=== PATIENT | female | born 1985 | race Caucasian/White ===

== ENCOUNTER 2017-07-31 17:47 | Emergency (ER) | payer MEDICAID ==
--- NOTE | 2017-07-31 18:24 | EDM.PDOC ---
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 She recently moved here from [place] over the past few days, driving. Started to have lower pelvic cramping two days ago while driving here from [place]. Cramping is located in suprapubic area, is constant but waxes and wanes, moderate severity, maybe provoked by driving on bumpy roads. Today she noticed some minimal spotting when she wiped. No heavy vaginal bleeding or passing clots. Otherwise feels well. No fever/recent illness. No nausea/ vomiting. No dysuria. No cough/CP/SOB. She does have bilateral lower extremity swelling that started after the long drive. (Julito Nick) - Related Data Allergies Allergy/AdvReac Type Severity Reaction Status Date / Time Sulfa (Sulfonamide Allergy Rash Verified 07/31/17 18:03 Antibiotics) Home Meds: Home Meds . 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: - Past Surgical History GI Surgical History: Reports: Cholecystectomy <Julito Nick - Last Filed: 07/31/17 18:41> Social & Family History - Tobacco Use Smoking Status *Q: Never Smoker - Caffeine Use Caffeine Use: Reports: None - Recreational Drug Use Recreational Drug Use: No <Julito Nick - Last Filed: 07/31/17 18:41> ED ROS GENERAL - Review of Systems Review Of Systems: See Below Constitutional: Denies: Fever HEENT: Reports: No Symptoms Respiratory: Denies: Shortness of Breath, Cough Cardiovascular: Denies: Chest Pain Endocrine: Reports: No Symptoms GI/Abdominal: Reports: Abdominal Pain : Denies: Dysuria Neurological: Reports: No Symptoms <Julito Nick - Last Filed: 07/31/17 18:41> ED EXAM - Physical Exam Exam: See Below Exam Limited By: No Limitations General Appearance: Alert, WD/WN, No Apparent Distress Eye Exam: Bilateral Eye: Normal Inspection Ears: Normal External Exam Nose: Normal Inspection Throat/Mouth: Normal Inspection, Normal Voice, No Airway Compromise Head: Atraumatic, Normocephalic Neck: Normal Inspection, Supple, Non-Tender, Full Range of Motion Respiratory/Chest: No Respiratory Distress, Lungs Clear, Normal Breath Sounds Cardiovascular: Normal Peripheral Pulses, Regular Rate, Rhythm, No Murmur GI/Abdominal Exam: Soft, Other (+suprapubic TTP, no rebound/guarding, no McBurney's pont TTP) (Female) Exam: Normal External Exam, Normal Speculum Exam, Other (Cervix closed. ). No: Cervical Discharge, Products of Conception, Tissue Present in Cervix/Vagina, Vaginal Bleeding Back Exam: Normal Inspection Extremities: Normal Inspection Neurological: Alert, Oriented, Normal Cognition, No Motor/Sensory Deficits Psychiatric: Normal Affect, Normal Mood Skin Exam: Warm, Dry, Intact, Normal Color, No Rash <Julito Nick - Last Filed: 07/31/17 18:41> Course <Julito Nick - Last Filed: 07/31/17 18:41> <Alonso Valerio - Last Filed: 07/31/17 22:09> - Vital Signs Last Recorded V/S: Last Vital Signs Temp 36.7 C 07/31/17 17:54 Pulse 82 07/31/17 17:54 Resp 16 07/31/17 17:54 BP 111/96 H 07/31/17 17:54 Pulse Ox 100 07/31/17 17:54 - Orders/Labs/Meds Orders: Active Orders 24 hr Category Date Time Status Pelvic Exam, Set Up [RC] ASDIRECTED Care 07/31/17 18:08 Active PATIENT RETYPE [BBK] Stat Lab 07/31/17 18:20 Results TYPE AND SCREEN [BBK] Stat Lab 07/31/17 18:20 Results Labs: Laboratory Tests 03/14/18 03/14/18 03/14/18 Range/Units 18:20 18:20 18:20 WBC 8.64 (3.98-10.04) K/mm3 RBC 4.43 (3.98-5.22) M/mm3 Hgb 12.9 (11.2-15.7) gm/L Hct 38.1 (34.1-44.9) % MCV 86.0 (79.4-94.8) fl MCH 29.1 (25.6-32.2) pg MCHC 33.9 (32.2-35.5) g/dl RDW Std Deviation 41.0 (36.4-46.3) fL Plt Count 395 H (182-369) K/mm3 MPV 9.3 L (9.4-12.3) fl Neut % (Auto) 66.8 (34.0-71.1) % Lymph % (Auto) 22.2 (19.3-51.7) % [place] % (Auto) 8.2 (4.7-12.5) % Eos % (Auto) 2.4 (0.7-5.8) Baso % (Auto) 0.2 (0.1-1.2) % Neut # (Auto) 5.76 (1.56-6.13) K/mm3 Lymph # (Auto) 1.92 (1.18-3.74) K/mm3 [place] # (Auto) 0.71 H (0.24-0.36) K/mm3 Eos # (Auto) 0.21 (0.04-0.36) K/mm3 Baso # (Auto) 0.02 (0.01-0.08) K/mm3 HCG, Quant 11144.0 mIU/mL Urine Color (Yellow) Urine Appearance (Clear) Urine pH (5.0-8.0) Ur Specific [place] (1.005-1.030) Urine Protein (Negative) Urine Glucose (UA) (Negative) Urine Ketones (Negative) Urine Occult Blood (Negative) Urine Nitrite (Negative) Urine Bilirubin (Negative) Urine Urobilinogen (0.2-1.0) Ur Leukocyte Esterase (Negative) Urine RBC (0-5) /hpf Urine WBC (0-5) /hpf Ur Epithelial Cells (0-5) /hpf Urine Bacteria (FEW) /hpf Urine Mucus (FEW) /hpf C trachomatis DNA (PCR) N gonorrhoeae DNA (PCR) Blood Type A POSITIVE Gel Antibody Screen Negative 07/31/17 07/31/17 Range/Units 18:38 20:52 WBC (3.98-10.04) K/mm3 RBC (3.98-5.22) M/mm3 Hgb (11.2-15.7) gm/L Hct (34.1-44.9) % MCV (79.4-94.8) fl MCH (25.6-32.2) pg MCHC (32.2-35.5) g/dl RDW Std Deviation (36.4-46.3) fL Plt Count (182-369) K/mm3 MPV (9.4-12.3) fl Neut % (Auto) (34.0-71.1) % Lymph % (Auto) (19.3-51.7) % [place] % (Auto) (4.7-12.5) % Eos % (Auto) (0.7-5.8) Baso % (Auto) (0.1-1.2) % Neut # (Auto) (1.56-6.13) K/mm3 Lymph # (Auto) (1.18-3.74) K/mm3 [place] # (Auto) (0.24-0.36) K/mm3 Eos # (Auto) (0.04-0.36) K/mm3 Baso # (Auto) (0.01-0.08) K/mm3 HCG, Quant mIU/mL Urine Color Yellow (Yellow) Urine Appearance Clear (Clear) Urine pH 6.0 (5.0-8.0) Ur Specific [place] 1.025 (1.005-1.030) Urine Protein Negative (Negative) Urine Glucose (UA) Negative (Negative) Urine Ketones 3+ H (Negative) Urine Occult Blood Negative (Negative) Urine Nitrite Negative (Negative) Urine Bilirubin Negative (Negative) Urine Urobilinogen 0.2 (0.2-1.0) Ur Leukocyte Esterase Negative (Negative) Urine RBC 0-5 (0-5) /hpf Urine WBC 0-5 (0-5) /hpf Ur Epithelial Cells 0-5 (0-5) /hpf Urine Bacteria Few (FEW) /hpf Urine Mucus Not seen (FEW) /hpf C trachomatis DNA (PCR) Not detected N gonorrhoeae DNA (PCR) Not detected Blood Type Gel Antibody Screen Meds: Medications Discontinued Medications Generic Name Dose Route Start Last Admin Trade Name Susan PRN Reason Stop Dose Admin Sodium Chloride 1,000 mls @ 1,000 mls/hr 07/31/17 18:58 07/31/17 19:30 Normal Saline IV 07/31/17 19:57 1,000 mls/hr ONETIME ONE Administration - Re-Assessments/Exams Free Text/Narrative Re-Assessment/Exam: 07/31/17 18:42 Well appearing, normal pelvic exam with no evidence of bleeding at this time. Labs/ultrasound pending. Anticipate sign out Dr. Valerio at 19:00 with plan to f/u labs and ultrasound and reevaluate pain. (Julito Nick) Free Text/Narrative Re-Assessment/Exam: 07/31/17 21:34 She is doing well at this time awaiting GC and Chlamydia ultrasound came back at 12 weeks 1 day she has a small sub-chorionic hemorrhage no additional abnormalities identified. Patient was brought in after 3 days of intermittent cramping she had a single episode of spotting earlier today which encouraged her to come in. Patient just moved out here from [place] and has not established with OB yet. She is a 2 para 1 she has a healthy 10-year-old daughter. Denies any unusual vaginal discharge. Urinalysis is not suggestive of infectious process. Repeat examination heart regular rhythm no murmur lungs clear no wheezes crackles or rhonchi respirations nonlabored abdomen active bowel sounds soft no apparent tenderness no rebound guarding or rigidity. She has some mild discomfort over the uterus but this is minimal. Urinalysis not suggestive of infectious process 1 dictated hCG is 56,000 consistent with dates seen on ultrasound of 12 weeks 1 day awaiting GC chlamydia type and screen. Case discussed Dr. Thomas assuming .GC chlamydia are negative and she is not Rh - patient will be discharged home to drink plenty of fluids and get plenty of rest and follow-up with Dr. Thomas later this week 07/31/17 22:05 She is not Rh- GC and Chlamydia are negative. She'll be discharged at this time (Alonso Valerio) Departure <Julito Nick - Last Filed: 07/31/17 18:41> - Departure Time of Disposition: 22:05 <Alonso Valerio Janneth - Last Filed: 07/31/17 22:09> - Departure Disposition: Home, Self-Care 01 Clinical Impression: Threatened miscarriage - Discharge Information Referrals: PCP,None [Primary Care Provider] - Forms: ED Department Discharge Additional Instructions: Return to the emergency room with any questions problems worsening symptoms. Follow-up with Dr. Thomas or the women's clinic later this week and 2 days. [phone] call in the morning to schedule Push lots of fluids. No heavy lifting no lifting over 20 pounds no repetitive lifting over 10-15 pounds. Continue vitamins
[2017-07-31] MEDS ORDERED: Sodium Chloride 0.9% 1,000 ML IV ONE (18:58)
--- NOTE | 2017-07-31 21:03 | US ---
First trimester obstetrical ultrasound: Multiple real-time images were obtained transabdominally. Comparison: No previous study. Dates: LMP: ? Current ultrasound: ELISA 02/25/18, gestational age 10 weeks 1 day Single intrauterine gestation is seen. Amniotic fluid volume is normal. Embryo is seen. Small subchorionic hemorrhage is noted. Right maternal ovary not visualized. Left internal ovary is normal. Measurements: [place]-rump length: 3.25 cm - 12 weeks 1 day Heart rate: 175 BPM Impression: 1. Single intrauterine gestation. Dates as noted above. 2. Small subchorionic hemorrhage. No additional abnormality is identified. Diagnostic code #2
[2017-07-31 21:28] LABS: C. TRACHOMATIS BY PCR NOT DETECTED; N. GONORRHOEAE BY PCR NOT DETECTED
== END 2017-07-31 22:13 | disposition home or self-care (01) ==
LOC: JD.ED 17:47
DX: O20.0 Threatened abortion (principal); Z88.2 Allergy status to sulfonamides
CPT/HCPCS: 36415; 76801; 81001; 84702; 85025; 86850; 86900; 86901; 87491; 87591; 96360; 99284; J7040; 99283

== ENCOUNTER 2017-08-04 14:27 | Emergency (ER) | payer MEDICAID ==
[2017-08-04] MEDS ORDERED: HYDROmorphone 0.5 MG/0.5 ML SYRINGE IVPUSH ONE ×2 (15:09→15:56)
[2017-08-04] MEDS ORDERED: Sodium Chloride 0.9% 1,000 ML IV ONE (15:09)
[2017-08-04] MEDS ORDERED: Sodium Chloride 0.9% 10 ML Syringe FLUSH PRN (15:09)
[2017-08-04] MEDS ORDERED: Ondansetron 4 MG/2 ML SDV IVPUSH ONE (15:17)
--- NOTE | 2017-08-04 15:23 | EDM.PDOC ---
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 She presents to the ED complaining of pelvic abdominal cramping with intermittent spotting with wiping. Their have been a few dark red small clots with wiping. She has not been wearing a pad. She states the discomfort is like contractions that radiates into her low back. She is concerned about miscarriage. She was seen in the ED for similar symptoms 4 days prior. She was diagnosed with a subchorionic hemorrhage small in nature. Single intrauterine gestation noted. The provider had discussed the case with Dr. Thomas. With instructions to discharge patient home and have her drink plenty of fluids get plenty of rest. She is scheduled to see Dr. Thomas this week. Additional instructions included no heavy lifting of greater than 20 pounds or repetitive lifting as well no sexual intercourse. Patient has also been mildly nauseated with onset of abdominal cramping. Appetite and fluid intake have been poor. No pain with urination. No dizziness with standing. No documented fever noted. She denies any additional complaints. history 2, para 1, no miscarriages or abortions. Blood type is A+. HCG quantitative from recent evaluation was 56,592. CBC was essentially normal. UA was negative for infection. Lower Pelvic Pain Score (Numeric/FACES): 8 - Related Data Allergies Allergy/AdvReac Type Severity Reaction Status Date / Time Sulfa (Sulfonamide Allergy Rash Verified 07/31/17 18:03 Antibiotics) Home Meds: Home Meds PNV95/Ferrous Fumarate/FA [ Tablet] 1 tab PO DAILY 08/04/17 [History] Past Medical History Respiratory History: Reports: Asthma RN ORTHOPAEDIC History: Reports: Other OB/BYN History: vaginal delivery; no complications with 1st - Past Surgical History GI Surgical History: Reports: Cholecystectomy Social & Family History - Tobacco Use Smoking Status *Q: Never Smoker - Caffeine Use Caffeine Use: Reports: None - Recreational Drug Use Recreational Drug Use: No ED ROS GENERAL - Review of Systems Review Of Systems: ROS reveals no pertinent complaints other than HPI. ED EXAM - Physical Exam Exam: See Below Exam Limited By: No Limitations General Appearance: Alert, WD/WN, No Apparent Distress Ears: Hearing Grossly Normal Nose: Normal Inspection Throat/Mouth: Normal Voice, No Airway Compromise Neck: Normal Inspection, Supple Respiratory/Chest: No Respiratory Distress, Lungs Clear, Normal Breath Sounds, No Accessory Muscle Use Cardiovascular: Normal Peripheral Pulses, Regular Rate, Rhythm, No Murmur GI/Abdominal Exam: Normal Bowel Sounds, Soft, No Organomegaly, No Distention, Other (pain to the pelvic region with palpation minimal. ) (Female) Exam: Normal External Exam, Adnexal Tenderness, Cervical Discharge, Vaginal Discharge. No: Normal Bimanual Exam (No bimanual pelvic exam would be obtained with history of subchorionic hemorrhage.), Cervical Dilatation, Cervical Lesions, Vaginal Bleeding, Vaginal Lesions Neurological: Alert, Oriented, CN II-XII Intact, Normal Cognition, No Motor/ Sensory Deficits Psychiatric: Normal Affect, Normal Mood Skin Exam: Warm, Dry, Intact, Normal Color, No Rash Course - Vital Signs Last Recorded V/S: Last Vital Signs Temp 97.8 F 08/04/17 19:00 Pulse 79 08/04/17 19:00 Resp 16 08/04/17 19:00 BP 94/68 08/04/17 19:00 Pulse Ox 100 08/04/17 19:00 - Orders/Labs/Meds Orders: Active Orders 24 hr Category Date Time Status Peripheral IV Care [RC] . DIRECTED Care 08/04/17 15:09 Active OB 1st Tri Sgl 1st Gest [US] Stat Exams 08/04/17 17:25 Taken Peripheral IV Insertion Adult [OM.PC] Routine Oth 08/04/17 15:09 Ordered Labs: Laboratory Tests 08/04/17 08/04/17 08/04/17 Range/Units 15:20 15:20 15:20 WBC 7.25 (3.98-10.04) K/mm3 RBC 4.86 (3.98-5.22) M/mm3 Hgb 14.0 (11.2-15.7) gm/L Hct 41.2 (34.1-44.9) % MCV 84.8 (79.4-94.8) fl MCH 28.8 (25.6-32.2) pg MCHC 34.0 (32.2-35.5) g/dl RDW Std Deviation 40.1 (36.4-46.3) fL Plt Count 358 (182-369) K/mm3 MPV 8.8 L (9.4-12.3) fl Neut % (Auto) 67.0 (34.0-71.1) % Lymph % (Auto) 22.2 (19.3-51.7) % [place] % (Auto) 8.1 (4.7-12.5) % Eos % (Auto) 2.3 (0.7-5.8) Baso % (Auto) 0.3 (0.1-1.2) % Neut # (Auto) 4.85 (1.56-6.13) K/mm3 Lymph # (Auto) 1.61 (1.18-3.74) K/mm3 [place] # (Auto) 0.59 H (0.24-0.36) K/mm3 Eos # (Auto) 0.17 (0.04-0.36) K/mm3 Baso # (Auto) 0.02 (0.01-0.08) K/mm3 Sodium 136 (136-145) mEq/L Potassium 3.2 L (3.5-5.1) mEq/L Chloride 102 (98-107) mEq/L Carbon Dioxide 25 (21-32) mEq/L Anion Gap 12.2 (5-15) BUN 6 L (7-18) mg/dL Creatinine 0.7 (0.55-1.02) mg/dL Est Cr Clr Drug Dosing 106.70 mL/min Estimated GFR (MDRD) > 60 (>60) mL/min BUN/Creatinine Ratio 8.6 L (14-18) Glucose 85 (74-106) mg/dL Calcium 9.1 (8.5-10.1) mg/dL Total Bilirubin 0.4 (0.2-1.0) mg/dL AST 12 L (15-37) U/L ALT 15 (14-59) U/L Alkaline Phosphatase 72 (46-116) U/L Total Protein 7.4 (6.4-8.2) g/dl Albumin 3.6 (3.4-5.0) g/dl Globulin 3.8 gm/dL Albumin/Globulin Ratio 1.0 (1-2) Progesterone 21.99 ng/mL HCG, Quant 65786.0 mIU/mL Meds: Medications Discontinued Medications Generic Name Dose Route Start Last Admin Trade Name Susan PRN Reason Stop Dose Admin Hydromorphone HCl 0.25 mg 08/04/17 15:09 08/04/17 15:26 Dilaudid IVPUSH 08/04/17 15:10 0.25 mg ONETIME ONE Administration Hydromorphone HCl 0.5 mg 08/04/17 15:56 08/04/17 16:03 Dilaudid IVPUSH 08/04/17 15:57 0.5 mg ONETIME ONE Administration Sodium Chloride 1,000 mls @ 999 mls/hr 08/04/17 15:09 08/04/17 15:23 Normal Saline IV 08/04/17 16:09 999 mls/hr ONETIME ONE Administration Ondansetron HCl 4 mg 08/04/17 15:17 08/04/17 19:07 Zofran IVPUSH 08/04/17 15:18 Not Given ONETIME ONE Sodium Chloride 10 ml 08/04/17 15:09 08/04/17 15:25 Saline Flush FLUSH 10 ml ASDIRECTED PRN Administration Keep Vein Open - Re-Assessments/Exams Free Text/Narrative Re-Assessment/Exam: IV established. Ordered Dilaudid 0.5 mg IVP, zofran 4mg IVP, and NS 999mls/hr. Initial labs and studies will include CBC, chem 14, HCG quantitative, and UA. Will perform speculum exam then discuss with Dr. Thomas if ultrasound required. Vaginal speculum exam performed with a positive [place] sign with only faint blood present along the cervical os. Thickened discharge from the cervix appears normal for . Patient had GC last ED vist which was negative. No foul odor present suggesting bacterial vaginosis. 08/04/17 16:30 HCG quantitative 52,834 decreased from previous E.D. visit. No UA obtained yet. Ordered ob ultrasound. 08/04/[address] Thomas. Suggested obtaining ultrasound here in the E.D. or in the clinic tomorrow. Have the patient call his office tomorrow morning at 730 to make an appt. Requested serum progesterone level be added to blood work. 163 Discussed labs with patient. Request ultrasound here in the E.D. This has been ordered. 08/04/17 18:33 No ultrasound results yet. No urine sample provided. Patient has no pain with urination. Progesterone 21.99. 1842 Ultrasound Report. Single live intrauterine gestation. 2. Estimated gestational age 10 weeks 6 day. Fetus is demonstrated appropriate interval growth. 3. Estimated date of delivery based on this ultrasound February 24, 2018. Patient has adequate pain control. No further spotting noted. Discharge instructions as documented. Departure - Departure Time of Disposition: 18:43 Disposition: Home, Self-Care 01 Condition: Good Clinical Impression: Vaginal spotting, Vaginal bleeding during - Discharge Information Instructions: Pain Medicine Instructions, [id number], Vaginal Bleeding During , First Trimester, [id number] Referrals: Glenn Thomas MD [Primary Care Provider] - Forms: ED Department Discharge Additional Instructions: Call and make an appt with Dr. Thomas tomorrow morning at 730 a.m. He will work you into his schedule. No sexual intercourse, heavy lifting, or strenuous activities. Utilize Tylenol for pain. Push the fluids. Ensure adequate rest. Return to ED for any new or worsening symptoms. - My Orders Last 24 Hours: My Active Orders 08/04/17 15:09 Peripheral IV Care [RC] . DIRECTED Peripheral IV Insertion Adult [OM.PC] Routine 08/04/17 17:25 OB 1st Tri Sgl 1st Gest [US] Stat - Assessment/Plan Last 24 Hours: My Active Orders 08/04/17 15:09 Peripheral IV Care [RC] . DIRECTED Peripheral IV Insertion Adult [OM.PC] Routine 08/04/17 17:25 OB 1st Tri Sgl 1st Gest [US] Stat
--- NOTE | 2017-08-05 11:05 | US ---
First trimester obstetrical ultrasound: Multiple real-time images were obtained transabdominally. Comparison: Previous obstetrical ultrasound of 07/31/17. Dates: LMP: ? Current ultrasound: ELISA 02/24/18, gestational age 10 weeks 6 days Earliest ultrasound (07/31/17): ELISA 02/25/18, gestational age 10 weeks 5 Single intrauterine gestation is seen. Embryo and yolk sac are seen. No subchorionic hemorrhage seen at this time. Maternal ovaries are not visualized. Measurements: [place]-rump length: 3.95 cm - 10 weeks 6 days Heart rate: 165 bpm Impression: 1. Single intrauterine gestation. Dates as noted above. 2. No complicating process is identified by ultrasound. Diagnostic code #1 Agree with preliminary report issued by [facility] ([facility] preliminary report dictated on 08/04/17, 7:36 PM Central Time)
== END 2017-08-04 19:00 | disposition home or self-care (01) ==
LOC: JD.ED 14:27
DX: O20.9 Hemorrhage in early pregnancy, unspecified (principal); O99.511 Diseases of the respiratory system complicating pregnancy, first trimester; J45.909 Unspecified asthma, uncomplicated; Z3A.10 10 weeks gestation of pregnancy; Z88.2 Allergy status to sulfonamides
CPT/HCPCS: 36415; 76801; 80053; 84144; 84702; 85025; 96361; 96374; 96376; 99284; J1170; J7040; J7050

== ENCOUNTER 2019-11-15 13:56 | Emergency (ER) | payer SELFPAY ==
[2019-11-15] MEDS ORDERED: Sodium Chloride 0.9% 10 ML Syringe FLUSH PRN (14:16)
[2019-11-15] MEDS ORDERED: Ketorolac 30 MG/ML SDV IVPUSH ONE (14:17)
[2019-11-15] MEDS ORDERED: Ondansetron 4 MG/2 ML SDV IVPUSH ONE (14:17)
--- NOTE | 2019-11-15 14:21 | EDM.PDOC ---
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 She states that she was cleaning her house when the symptoms began. Prior to the onset of pain she was feeling well. Since that time she has been experiencing intense stabbing pain, she did have some episodes of diarrhea, as well as nausea but has no vomiting. She denies any bleeding or abnormal vaginal discharge. Her last menstrual period was started on October 31 and lasted approximately 5 to 7 days which she states is normal for her. She denies any pain or burning with urination. She has no history of ovarian cyst that she is aware of. 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 Denies: Fever, Chills HEENT: Reports: No Symptoms Respiratory: Reports: No Symptoms Cardiovascular: Reports: No Symptoms Endocrine: Reports: No Symptoms GI/Abdominal: Reports: Diarrhea, Nausea. Denies: Vomiting : Reports: Pain (pelvic) Musculoskeletal: Reports: No Symptoms Skin: Reports: No Symptoms Neurological: Reports: No Symptoms Psychiatric: Reports: No Symptoms Hematologic/Lymphatic: Reports: No Symptoms Immunologic: Reports: No Symptoms ED EXAM, RENAL/ - Physical Exam Exam: See Below Exam Limited By: No Limitations General Appearance: Alert, WD/WN, Mild Distress Respiratory/Chest: No Respiratory Distress, Lungs Clear, Normal Breath Sounds, No Accessory Muscle Use, Chest Non-Tender Cardiovascular: Normal Peripheral Pulses, Regular Rate, Rhythm, No Edema, No Gallop, No JVD, No Murmur, No Rub GI/Abdominal: Normal Bowel Sounds, Soft, Non-Tender, No Organomegaly, No Distention, No Abnormal Bruit, No Mass, Other (Tenderness in the low midline suprapubic area.) Back Exam: Normal Inspection, Full Range of Motion, NT Neurological: Alert, Oriented, CN II-XII Intact, Normal Cognition, Normal Gait, Normal Reflexes, No Motor/Sensory Deficits Psychiatric: Normal Affect, Normal Mood Skin Exam: Warm, Dry, Intact, Normal Color, No Rash Course - Vital Signs Last Recorded V/S: Last Vital Signs Temp 98.2 F 11/15/19 14:04 Pulse 93 11/15/19 14:04 Resp 16 11/15/19 14:04 BP 108/82 11/15/19 14:04 Pulse Ox 100 11/15/19 14:04 - Orders/Labs/Meds Orders: Active Orders 24 hr Category Date Time Status Peripheral IV Care [RC] . DIRECTED Care 11/15/19 14:17 Active Transvaginal Non OB [US] Stat Exams 11/15/19 14:16 Taken Peripheral IV Insertion Adult [OM.PC] Stat Oth 11/15/19 14:16 Ordered Labs: Laboratory Tests 11/15/19 11/15/19 11/15/19 Range/Units 14:45 14:45 15:11 WBC 9.98 (3.98-10.04) K/mm3 RBC 4.83 (3.98-5.22) M/mm3 Hgb 14.2 (11.2-15.7) gm/dl Hct 43.2 (34.1-44.9) % MCV 89.4 (79.4-94.8) fl MCH 29.4 (25.6-32.2) pg MCHC 32.9 (32.2-35.5) g/dl RDW Std Deviation 45.2 (36.4-46.3) fL Plt Count 479 H D (182-369) K/mm3 MPV 9.0 L (9.4-12.3) fl Neut % (Auto) 58.6 (34.0-71.1) % Lymph % (Auto) 29.0 (19.3-51.7) % [place] % (Auto) 9.9 (4.7-12.5) % Eos % (Auto) 2.1 (0.7-5.8) Baso % (Auto) 0.3 (0.1-1.2) % Neut # (Auto) 5.85 (1.56-6.13) K/mm3 Lymph # (Auto) 2.89 (1.18-3.74) K/mm3 [place] # (Auto) 0.99 H (0.24-0.36) K/mm3 Eos # (Auto) 0.21 (0.04-0.36) K/mm3 Baso # (Auto) 0.03 (0.01-0.08) K/mm3 Sodium 140 (136-145) mEq/L Potassium 3.7 (3.5-5.1) mEq/L Chloride 103 (98-107) mEq/L Carbon Dioxide 27 (21-32) mEq/L Anion Gap 13.7 (5-15) BUN 12 (7-18) mg/dL Creatinine 1.1 H (0.55-1.02) mg/dL Est Cr Clr Drug Dosing 66.68 mL/min Estimated GFR (MDRD) 58 (>60) mL/min BUN/Creatinine Ratio 10.9 L (14-18) Glucose 82 (74-106) mg/dL Calcium 8.6 (8.5-10.1) mg/dL Total Bilirubin 0.3 (0.2-1.0) mg/dL AST 16 (15-37) U/L ALT 21 (14-59) U/L Alkaline Phosphatase 85 (46-116) U/L C-Reactive Protein <0.2 (<1.0) mg/dL Total Protein 7.3 (6.4-8.2) g/dl Albumin 3.7 (3.4-5.0) g/dl Globulin 3.6 gm/dL Albumin/Globulin Ratio 1.0 (1-2) Urine Color Yellow (Yellow) Urine Appearance Clear (Clear) Urine pH 6.0 (5.0-8.0) Ur Specific [place] > or = 1.030 (1.005-1.030) Urine Protein Negative (Negative) Urine Glucose (UA) Negative (Negative) Urine Ketones 1+ H (Negative) Urine Occult Blood Negative (Negative) Urine Nitrite Negative (Negative) Urine Bilirubin Negative (Negative) Urine Urobilinogen 0.2 (0.2-1.0) Ur Leukocyte Esterase Negative (Negative) Urine RBC 0-5 (0-5) /hpf Urine WBC 0-5 (0-5) /hpf Ur Squamous Epith Cells 0-5 (0-5) /hpf Urine Bacteria Few (FEW) /hpf Urine Mucus Few (FEW) /hpf Urine HCG, Qual (NEGATIVE) 11/15/19 Range/Units 15:11 WBC (3.98-10.04) K/mm3 RBC (3.98-5.22) M/mm3 Hgb (11.2-15.7) gm/dl Hct (34.1-44.9) % MCV (79.4-94.8) fl MCH (25.6-32.2) pg MCHC (32.2-35.5) g/dl RDW Std Deviation (36.4-46.3) fL Plt Count (182-369) K/mm3 MPV (9.4-12.3) fl Neut % (Auto) (34.0-71.1) % Lymph % (Auto) (19.3-51.7) % [place] % (Auto) (4.7-12.5) % Eos % (Auto) (0.7-5.8) Baso % (Auto) (0.1-1.2) % Neut # (Auto) (1.56-6.13) K/mm3 Lymph # (Auto) (1.18-3.74) K/mm3 [place] # (Auto) (0.24-0.36) K/mm3 Eos # (Auto) (0.04-0.36) K/mm3 Baso # (Auto) (0.01-0.08) K/mm3 Sodium (136-145) mEq/L Potassium (3.5-5.1) mEq/L Chloride (98-107) mEq/L Carbon Dioxide (21-32) mEq/L Anion Gap (5-15) BUN (7-18) mg/dL Creatinine (0.55-1.02) mg/dL Est Cr Clr Drug Dosing mL/min Estimated GFR (MDRD) (>60) mL/min BUN/Creatinine Ratio (14-18) Glucose (74-106) mg/dL Calcium (8.5-10.1) mg/dL Total Bilirubin (0.2-1.0) mg/dL AST (15-37) U/L ALT (14-59) U/L Alkaline Phosphatase (46-116) U/L C-Reactive Protein (<1.0) mg/dL Total Protein (6.4-8.2) g/dl Albumin (3.4-5.0) g/dl Globulin gm/dL Albumin/Globulin Ratio (1-2) Urine Color (Yellow) Urine Appearance (Clear) Urine pH (5.0-8.0) Ur Specific [place] (1.005-1.030) Urine Protein (Negative) Urine Glucose (UA) (Negative) Urine Ketones (Negative) Urine Occult Blood (Negative) Urine Nitrite (Negative) Urine Bilirubin (Negative) Urine Urobilinogen (0.2-1.0) Ur Leukocyte Esterase (Negative) Urine RBC (0-5) /hpf Urine WBC (0-5) /hpf Ur Squamous Epith Cells (0-5) /hpf Urine Bacteria (FEW) /hpf Urine Mucus (FEW) /hpf Urine HCG, Qual Negative (NEGATIVE) Meds: Medications Discontinued Medications Generic Name Dose Route Start Last Admin Trade Name Freq PRN Reason Stop Dose Admin Hydromorphone HCl 0.5 mg 11/15/19 15:50 11/15/19 15:57 Dilaudid IVPUSH 11/15/19 15:51 0.5 mg ONETIME ONE Administration Sodium Chloride 1,000 mls @ 150 mls/hr 11/15/19 14:30 11/15/19 14:44 Normal Saline IV 150 mls/hr ASDIRECTED LOURDES Administration Ketorolac Tromethamine 30 mg 11/15/19 14:17 11/15/19 14:43 Toradol IVPUSH 11/15/19 14:18 30 mg ONETIME ONE Administration Ondansetron HCl 4 mg 11/15/19 14:17 11/15/19 14:44 Zofran IVPUSH 11/15/19 14:18 4 mg ONETIME ONE Administration Sodium Chloride 10 ml 11/15/19 14:16 11/15/19 14:44 Saline Flush FLUSH 10 ml ASDIRECTED PRN Administration Keep Vein Open - Re-Assessments/Exams Free Text/Narrative Re-Assessment/Exam: 11/15/19 16:22 Patient's hematology was grossly unremarkable. test is negative. Urinalysis was negative for any infection or blood. Transvaginal ultrasound showed a small cervical nabothian cyst and a small subendometrial cyst with no acute findings. Ultrasounds were reviewed by Dr. Hammond and he visualizes a hemorrhagic cyst within the right ovary which is likely the cause of the patient's pain. Differential would be mittelschmerz pain as well. Patient does verbalize relief of pain with the medications given. We will discharge her home with a prescription for [place] and instructions to rest and abstain from sex for at least 2 days or until the pain resolves. Return to the ER for worsening symptoms or follow-up with PLATE SHEAR OPERATOR as needed. Discharge instructions as documented. Departure - Departure Time of Disposition: 16:24 Disposition: Home, Self-Care 01 Condition: Good Clinical Impression: Ovarian cyst Qualifiers: Laterality: right Qualified Code(s): N83.201 - Unspecified ovarian cyst, right side - Discharge Information *PRESCRIPTION DRUG MONITORING PROGRAM REVIEWED*: Yes *COPY OF PRESCRIPTION DRUG MONITORING REPORT IN PATIENT BRIAN: No Instructions: Ovarian Cyst, [id number] Referrals: PCP,None [Primary Care Provider] - Forms: ED Department Discharge Additional Instructions: You were seen in the emergency department today for abrupt onset of sharp pelvic pain. Work-up included blood work, urinalysis, and a pelvic ultrasound. As we discussed, there appears to be a small hemorrhagic cyst on the right ovary which is likely the cause of your pain. While in the ER you received a liter of IV fluids, Zofran for nausea, and Toradol and Dilaudid for pain which did resolve your pain. Recommend that you use [id number] ibuprofen for your pain. You have been provided a prescription for [place]. For pain not relieved by the ibuprofen, you may take 1 [place] every [address] work for 12 hours after taking this medication as it can be sedating. If your symptoms should worsen, please not hesitate to return to the ER. Follow-up with your PLATE SHEAR OPERATOR as needed. Sepsis Event Note (ED) - Evaluation Sepsis Screening Result: No Definite Risk - Focused Exam Vital Signs: Vital Signs Temp Pulse Resp BP Pulse Ox 11/15/19 14:04 98.2 F 93 16 108/82 100 - My Orders Last 24 Hours: My Active Orders 11/15/19 14:16 Transvaginal Non OB [US] Stat Peripheral IV Insertion Adult [OM.PC] Stat 11/15/19 14:17 Peripheral IV Care [RC] . DIRECTED - Assessment/Plan Last 24 Hours: My Active Orders 11/15/19 14:16 Transvaginal Non OB [US] Stat Peripheral IV Insertion Adult [OM.PC] Stat 11/15/19 14:17 Peripheral IV Care [RC] . DIRECTED
[2019-11-15] MEDS ORDERED: Sodium Chloride 0.9% 1,000 ML IV SCH (14:30)
[2019-11-15] MEDS ORDERED: HYDROmorphone 0.5 MG/0.5 ML Syringe IVPUSH ONE (15:50)
--- NOTE | 2019-11-16 09:44 | US ---
Pelvic ultrasound: Multiple real-time images were obtained transvaginally. Comparison: No prior pelvic ultrasound. Uterus is anteverted. Small amount of fluid is seen within the endocervical canal. Nabothian cysts are present. Endometrial thickness is normal at 9 mm. Follicles are seen within both ovaries. Minimal fluid within the cul-de-sac is seen believed to be physiologic. Measurements: Uterus: Length 9.8 cm, AP height 4.5 cm,transverse width 6.3 cm Right ovary: 3.1 x 1.3 x 1.8 cm Left ovary: 3.5 x 1.8 x 1.9 cm Impression: 1. Findings believed to be incidental as described above. 2. Nothing acute is appreciated. Diagnostic code #2 This report was dictated in MDT I agree with preliminary report from [facility], finalized on 11/15/19, 4:27 PM Central Daylight Time
== END 2019-11-15 16:49 | disposition home or self-care (01) ==
LOC: JD.ED 13:56
DX: N83.201 Unspecified ovarian cyst, right side (principal); J45.909 Unspecified asthma, uncomplicated; Z88.2 Allergy status to sulfonamides
CPT/HCPCS: 36415; 76830; 80053; 81001; 81025; 85025; 86140; 96361; 96374; 96375; 99284; J1170; J1885; J2405; J7030

== ENCOUNTER 2020-03-30 21:20 | Emergency (ER) | payer SELFPAY ==
[2020-03-30] MEDS ORDERED: Sodium Chloride 0.9% 10 ML Syringe FLUSH PRN (21:30)
[2020-03-30] MEDS ORDERED: HYDROmorphone 0.5 MG/0.5 ML Syringe IVPUSH ONE ×2 (21:40→22:37)
[2020-03-30] MEDS ORDERED: Sodium Chloride 0.9% 1,000 ML IV STA (21:40)
--- NOTE | 2020-03-30 21:45 | EDM.PDOC ---
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 States the end of her last menstrual period was around 23 February with the first day of last menstrual period being aroung February 18 . She was due to start her period approximately 1 week ago. States she took a home x1 week ago and was found to be positive. She took another one today and that was also positive. About 4 hours prior to coming to the ER, she started having some vaginal bleeding that has since developed pelvic cramps and low back pain. States that she is soaking a tampon an hour. Denies any lightheadedness. She has had no previous miscarriages. 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 History: vaginal delivery; no complications with 1st , subchorionic bleed Musculoskeletal History: Reports: None Neurological History: Reports: None Psychiatric History: Reports: None Endocrine/Metabolic History: Reports: None Hematologic History: Reports: None Immunologic History: Reports: None Oncologic (Cancer) History: Reports: None Dermatologic History: Reports: None - Infectious Disease History Infectious Disease History: Reports: None - Past Surgical History Head Surgeries/Procedures: Reports: None HEENT Surgical History: Reports: None GI Surgical History: Reports: Cholecystectomy Social & Family History - Family History Family Medical History: No Pertinent Family History - Tobacco Use Tobacco Use Status *Q: Never Tobacco User - Caffeine Use Caffeine Use: Reports: Coffee - Recreational Drug Use Recreational Drug Use: Yes Drug Use in Last 12 Months: No Recreational Drug Type: Reports: Marijuana/Hashish Recreational Drug Use Frequency: Not Used In Over 1 Year ED ROS GENERAL - Review of Systems Review Of Systems: See Below Constitutional: Reports: No Symptoms HEENT: Reports: No Symptoms Respiratory: Reports: No Symptoms Cardiovascular: Reports: No Symptoms Endocrine: Reports: No Symptoms GI/Abdominal: Reports: No Symptoms : Reports: Pain, Other (Vaginal bleeding in ) Musculoskeletal: Reports: Back Pain (Low) Skin: Reports: No Symptoms Neurological: Reports: No Symptoms Psychiatric: Reports: No Symptoms Hematologic/Lymphatic: Reports: No Symptoms Immunologic: Reports: No Symptoms ED EXAM - Physical Exam Exam: See Below General Appearance: Alert, WD/WN, No Apparent Distress Respiratory/Chest: No Respiratory Distress, Lungs Clear, Normal Breath Sounds, No Accessory Muscle Use, Chest Non-Tender Cardiovascular: Normal Peripheral Pulses, Regular Rate, Rhythm, No Edema, No Gallop, No JVD, No Murmur, No Rub GI/Abdominal Exam: Normal Bowel Sounds, Soft, No Organomegaly, No Distention, No Abnormal Bruit, No Mass, Pelvis Stable, Tender (suprapubic) (Female) Exam: Normal External Exam, Cervical Discharge (bloody/mucousy), Tissue Present in Cervix/Vagina (small amount of tissue present in cervical os) Neurological: Alert, Oriented, CN II-XII Intact, Normal Cognition, Normal Gait, Normal Reflexes, No Motor/Sensory Deficits Psychiatric: Normal Affect, Normal Mood Skin Exam: Warm, Dry, Intact, Normal Color, No Rash Course - Vital Signs Last Recorded V/S: Last Vital Signs Temp 97.4 F 03/30/20 21:28 Pulse 83 03/30/20 21:28 Resp 16 03/30/20 21:28 BP 116/89 03/30/20 21:28 Pulse Ox 99 03/30/20 21:28 - Orders/Labs/Meds Orders: Active Orders 24 hr Category Date Time Status Peripheral IV Care [RC] . DIRECTED Care 03/30/20 21:32 Active OB Transvaginal [US] Stat Exams 03/30/20 21:31 Taken TYPE AND SCREEN [BBK] Stat Lab 03/30/20 21:45 Received Sodium Chloride 0.9% [Saline Flush] Med 03/30/20 21:30 Active 10 ml FLUSH ASDIRECTED PRN Peripheral IV Insertion Adult [OM.PC] Stat Oth 03/30/20 21:31 Ordered Medication Orders Sodium Chloride (Saline Flush) 10 ml FLUSH ASDIRECTED PRN PRN Reason: Keep Vein Open Last Admin: 03/30/20 21:46 Dose: 10 ml Documented by: PADDY Labs: Laboratory Tests 03/30/20 03/30/20 Range/Units 21:45 21:45 WBC 9.25 (3.98-10.04) K/mm3 RBC 4.52 (3.98-5.22) M/mm3 Hgb 12.8 (11.2-15.7) gm/dl Hct 40.7 (34.1-44.9) % MCV 90.0 (79.4-94.8) fl MCH 28.3 (25.6-32.2) pg MCHC 31.4 L (32.2-35.5) g/dl RDW Std Deviation 44.3 (36.4-46.3) fL Plt Count 377 H D (182-369) K/mm3 MPV 9.0 L (9.4-12.3) fl Neut % (Auto) 55.9 (34.0-71.1) % Lymph % (Auto) 32.4 (19.3-51.7) % [place] % (Auto) 8.8 (4.7-12.5) % Eos % (Auto) 2.5 (0.7-5.8) Baso % (Auto) 0.2 (0.1-1.2) % Neut # (Auto) 5.17 (1.56-6.13) K/mm3 Lymph # (Auto) 3.00 (1.18-3.74) K/mm3 [place] # (Auto) 0.81 H (0.24-0.36) K/mm3 Eos # (Auto) 0.23 (0.04-0.36) K/mm3 Baso # (Auto) 0.02 (0.01-0.08) K/mm3 HCG, Quant 25.0 mIU/mL Meds: Medications Generic Name Dose Route Start Last Admin Trade Name Freq PRN Reason Stop Dose Admin Sodium Chloride 10 ml 03/30/20 21:30 03/30/20 21:46 Saline Flush FLUSH 10 ml ASDIRECTED PRN Administration Keep Vein Open Discontinued Medications Generic Name Dose Route Start Last Admin Trade Name Susan PRN Reason Stop Dose Admin Hydromorphone HCl 0.5 mg 03/30/20 21:40 03/30/20 21:46 Dilaudid IVPUSH 03/30/20 21:41 0.5 mg ONETIME ONE Administration Hydromorphone HCl 0.5 mg 03/30/20 22:37 03/30/20 22:57 Dilaudid IVPUSH 03/30/20 22:38 0.5 mg ONETIME ONE Administration Sodium Chloride 1,000 mls @ 999 mls/hr 03/30/20 21:40 03/30/20 21:46 Normal Saline IV 03/30/20 22:40 999 mls/hr NOW STA Administration - Re-Assessments/Exams Free Text/Narrative Re-Assessment/Exam: Patient is a 34-year-old female G3, P2 presenting to the emergency department with complaints of vaginal bleeding and pelvic cramping. She is estimated to be approximately 5 to 6 weeks gestation based on her last menstrual period. States had a positive test 1 week ago and then another positive test today. She developed onset of bleeding and pelvic cramping about 4 hours prior to coming to ER. I have ordered CBC, quantitative hCG, ABO/Rh, transvaginal pelvic ultrasound, IV normal saline at 150 mils per hour and Dilaud id 0.5 mg IV. Review of her previous visits to this emergency department indicate that she is A+, however we will verify that today. 03/30/20 23:00 hCG level is minimally elevated at 25. Blood work was otherwise unremarkable. Pelvic exam shows a small amount of tissue noted within the cervix. Transvaginal ultrasound shows no intrauterine gestation, there is a complicated cyst on the right ovary, cannot exclude ectopic . Called and spoke with the DATA ANALYSIS INTERN on-call, Dr. Jefferson. He would like her to follow-up in the clinic on Saturday morning to trend the hCG levels. I will write a prescription for Percocet. Discussed return precautions with the patient including saturating a pad an hour for more than 2 hours or intolerable pain. I will provide her with a note off from work to be used as needed. Discharge instructions as documented. Departure - Departure Time of Disposition: 23:01 Disposition: Home, Self-Care 01 Condition: Good Clinical Impression: Threatened miscarriage - Discharge Information *PRESCRIPTION DRUG MONITORING PROGRAM REVIEWED*: Yes *COPY OF PRESCRIPTION DRUG MONITORING REPORT IN PATIENT BRIAN: No Prescriptions: Acetaminophen/oxyCODONE [Percocet 325-5 MG] 1 each PO Q4H PRN #20 tab PRN Reason: Pain Instructions: Threatened Miscarriage, [id number] Referrals: Adalberto Jefferson MD [Physician] - Forms: ED Department Discharge, ED Return to Work/School Form Additional Instructions: You were seen in the emergency department today for pelvic cramping and bleeding in early . Blood work was completed and showed that your hCG levels are minimally elevated, however not to the degree that we would expect them to be given your last menstrual period dates. Pelvic ultrasound was completed and unfortunately does not show an intrauterine gestation. At this point the possibilities are a miscarriage versus ectopic . A prescription for Percocet for pain has been provided. Take this medication as prescribed. Your case has been discussed with Dr. Jefferson, DATA ANALYSIS INTERN. Recommend that you call tomorrow to set up a follow-up appoint with him for Saturday. If your bleeding should increase to the point that you are saturating a pad an hour for more than 2 hours or the pain increases and is intolerable. You should return to the emergency department for reevaluation. Sepsis Event Note (ED) - Evaluation Sepsis Screening Result: No Definite Risk - Focused Exam Vital Signs: Vital Signs Temp Pulse Resp BP Pulse Ox 03/30/20 21:28 97.4 F 83 16 116/89 99 - My Orders Last 24 Hours: My Active Orders 03/30/20 21:30 Sodium Chloride 0.9% [Saline Flush] 10 ml FLUSH ASDIRECTED PRN 03/30/20 21:31 OB Transvaginal [US] Stat Peripheral IV Insertion Adult [OM.PC] Stat 03/30/20 21:32 Peripheral IV Care [RC] . DIRECTED 03/30/20 21:45 TYPE AND SCREEN [BBK] Stat - Assessment/Plan Last 24 Hours: My Active Orders 03/30/20 21:30 Sodium Chloride 0.9% [Saline Flush] 10 ml FLUSH ASDIRECTED PRN 03/30/20 21:31 OB Transvaginal [US] Stat Peripheral IV Insertion Adult [OM.PC] Stat 03/30/20 21:32 Peripheral IV Care [RC] . DIRECTED 03/30/20 21:45 TYPE AND SCREEN [BBK] Stat
[2020-03-30] MEDS ORDERED: Acetaminophen/oxyCODONE 325-5 MG Tab PO ONE (23:05)
--- NOTE | 2020-03-31 08:47 | US ---
Addendum created by Damaris Hoffman MD on 03/31/2020 12:00 AM Central Time ([place]): THIS REPORT CONTAINS FINDINGS THAT MAY BE CRITICAL TO PATIENT CARE. The findings were verbally communicated via telephone conference with SAMANTHA LUNA at 12:[address] [employer]INTENA[employer]W WORKER on 03/31/2020. The findings were acknowledged and understood. Initial Report created on 03/31/2020 12:00 AM Central Time ([place] & [place]): PROCEDURE INFORMATION: Exam: US , Transvaginal Exam date and time: 03/30/2020 10:04 PM Age: 34 years old Clinical indication: Lmp or gestational age (in weeks): Working kevin/lmp not provided; Antepartum complications; Bleeding and other: Cramping; Patient HX: 03/30/20 hcg 25 miu/ml TECHNIQUE: Imaging protocol: Real-time transvaginal obstetrical ultrasound of the maternal pelvis and a first trimester with image documentation. Transvaginal imaging was used for better evaluation of the fetus, adnexa, and/or cervix. COMPARISON: US Transvaginal Non OB 11/15/2019 3:41 PM FINDINGS: Gestation: No intrauterine is identified. MATERNAL: Uterus: Uterus measures 8.0 cm longitudinally. Endometrium is thickened and echogenic at 9.0 mm. Right adnexa: Right ovary measures 4.8 x 3.8 x 4.6 cm for a right ovarian volume of 42.8 mL. There is a complex cyst associated with the right ovary, measuring 4.2 x 3.3 x 4.2 cm there is surrounding hyperemia. Left adnexa: The left ovary measures 5.9 x 3.9 x 3.6 cm for a left ovarian volume of 43.0 mL. There is internal complex cyst measuring 4.0 x 3.2 x 3.0 cm with an internal fluid debris level. There is surrounding hyperemia. Intraperitoneal space: No free fluid. IMPRESSION: 1. No intrauterine is identified. 2. Complex cystic structures associated with each ovary. These may represent hemorrhagic cysts and/or corpus luteal cyst. An ectopic cannot be excluded. These findings are discussed with referring service immediately upon completion of the study. Thank you for allowing us to participate in the care of your patient. Dictated and Authenticated by: Damaris Hoffman MD 03/31/2020 12:00 AM Central Time ([place]) MTDD
== END 2020-03-30 23:22 | disposition home or self-care (01) ==
LOC: JD.ED 21:20
DX: O20.0 Threatened abortion (principal); Z88.2 Allergy status to sulfonamides; Z3A.01 Less than 8 weeks gestation of pregnancy
CPT/HCPCS: 36415; 76817; 84702; 85025; 86850; 86900; 86901; 96374; 96376; 99284; A9270; J1170; J7030

== ENCOUNTER 2021-01-10 11:51 | Emergency (ER) | payer MEDICAID ==
[2021-01-10] MEDS ORDERED: Ketorolac 30 MG/ML SDV IVPUSH ONE (12:41)
[2021-01-10] MEDS ORDERED: Sodium Chloride 0.9% 10 ML Syringe FLUSH PRN (12:41)
--- NOTE | 2021-01-10 13:44 | EDM.PDOC ---
ED HPI GENERAL MEDICAL PROBLEM - General Chief Complaint: HEADMASTER/MISTRESS Problem Stated Complaint: PELVIC PAIN Time Seen by Provider: 01/10/21 12:00 Source of Information: Reports: Patient History Limitations: Reports: No Limitations - History of Present Illness INITIAL COMMENTS - FREE TEXT/NARRATIVE: 35-year-old female presents the emergency department today with complaints of pelvic/cervical pain that started 3 hours prior to arrival. She states she was sitting at work taking a test when she developed severe suprapubic pain as well as she describes cervical pain. She states she does have a history of miscarriage once and ovarian cyst however she states that this pain is significantly worse than both those instances. She has not taken any Tylenol or ibuprofen for the discomfort. She denies any recent fever, chills, nausea, vomiting or diarrhea. She denies any urinary symptoms. She denies any cough, shortness of breath or any respiratory symptoms. She states she is otherwise healthy. She does not have a primary care provider. She does not believe she could be as she states her and her use condoms for control. She states that the first day of her last menstrual period was on 25 December 2020. She states her periods are regular and she has not missed any periods. Left Lower Vaginal Pain Score (Numeric/FACES): 8 - Related Data Allergies Allergy/AdvReac Type Severity Reaction Status Date / Time Sulfa (Sulfonamide Allergy Severe Rash Verified 01/10/21 11:58 Antibiotics) Home Meds: Home Meds Naproxen 500 mg PO Q12H #10 tablet. 01/10/21 [Rx] Past Medical History - Past Health History Medical/Surgical History: Denies Medical/Surgical History HEENT History: Reports: None Cardiovascular History: Reports: None Respiratory History: Reports: Asthma Gastrointestinal History: Reports: Cholelithiasis Genitourinary History: Reports: None HEADMASTER/MISTRESS History: Reports: Other HEADMASTER/MISTRESS History: vaginal delivery; no complications with 1st , subchorionic bleed Musculoskeletal History: Reports: None Neurological History: Reports: None Psychiatric History: Reports: None Endocrine/Metabolic History: Reports: None Hematologic History: Reports: None Immunologic History: Reports: None Oncologic (Cancer) History: Reports: None Dermatologic History: Reports: None - Infectious Disease History Infectious Disease History: Reports: Chicken Pox - Past Surgical History Head Surgeries/Procedures: Reports: None HEENT Surgical History: Reports: None GI Surgical History: Reports: Cholecystectomy Social & Family History - Family History Family Medical History: No Pertinent Family History - Tobacco Use Tobacco Use Status *Q: Never Tobacco User - Caffeine Use Caffeine Use: Reports: Coffee - Recreational Drug Use Recreational Drug Use: No ED ROS GENERAL - Review of Systems Review Of Systems: Comprehensive ROS is negative, except as noted in HPI. ED EXAM, RENAL/ - Physical Exam Exam: See Below Exam Limited By: No Limitations General Appearance: Alert, WD/WN, No Apparent Distress Ears: Normal External Exam, Hearing Grossly Normal Nose: Normal Inspection Throat/Mouth: Normal Inspection, Normal Lips, Normal Voice, No Airway Compromise Head: Atraumatic, Normocephalic Neck: Normal Inspection, Supple Respiratory/Chest: No Respiratory Distress, Lungs Clear, Normal Breath Sounds, No Accessory Muscle Use, Chest Non-Tender Cardiovascular: Normal Peripheral Pulses, Regular Rate, Rhythm, No Edema, No Murmur GI/Abdominal: Normal Bowel Sounds, Soft, No Distention, Tender (Right and left l ower quadrant as well as suprapubic area) (Female) Exam: Normal External Exam, Adnexal Tenderness, Cervical Discharge (Milky white), Vaginal Discharge (Milky white milky white) Rectal (Female) Exam: Deferred Back Exam: Normal Inspection Extremities: Normal Inspection Neurological: Alert, Oriented, Normal Cognition Psychiatric: Normal Affect, Normal Mood Skin Exam: Warm, Dry, Intact, Normal Color, No Rash Lymphatic: No Adenopathy Course - Vital Signs Text/Narrative:: As stated above, patient presents with suprapubic pain that started about 3 hours ago. Upon assessment patient is awake and alert and does not appear in any distress. She does note tenderness with palpation to the suprapubic area as well as the left and right lower quadrants. I have ordered labs to include a CBC, CMP, magnesium level and a CRP level. We will also obtain a urine test. And a urinalysis with micro and culture if indicated. Nursing staff will place a saline lock. We will also give the patient Toradol 30 mg IV for the discomfort. Last Recorded V/S: Last Vital Signs Temp 97.9 F 01/10/21 12:02 Pulse 76 01/10/21 12:02 Resp 18 01/10/21 12:02 BP 121/81 01/10/21 12:02 Pulse Ox 100 01/10/21 12:02 - Orders/Labs/Meds Orders: Active Orders 24 hr Category Date Time Status WET PREP [MYC] Stat Lab 01/10/21 15:52 Ordered Sodium Chloride 0.9% [Saline Flush] Med 01/10/21 12:41 Active 10 ml FLUSH ASDIRECTED PRN Saline Lock Insert [OM.PC] Stat Oth 01/10/21 12:41 Ordered Medication Orders Sodium Chloride (Sodium Chloride 0.9% 10 Ml Syringe) 10 ml FLUSH ASDIRECTED PRN PRN Reason: Keep Vein Open Last Admin: 01/10/21 13:04 Dose: 10 ml Documented by: VALERIE Labs: Laboratory Tests 01/10/21 01/10/21 01/10/21 Range/Units 12:52 12:52 12:52 WBC 8.36 (3.98-10.04) K/mm3 RBC 4.96 (3.98-5.22) M/mm3 Hgb 14.4 D (11.2-15.7) gm/dl Hct 43.9 (34.1-44.9) % MCV 88.5 (79.4-94.8) fl MCH 29.0 (25.6-32.2) pg MCHC 32.8 (32.2-35.5) g/dl RDW Std Deviation 43.9 (36.4-46.3) fL Plt Count 424 H (182-369) K/mm3 MPV 8.9 L (9.4-12.3) fl Neut % (Auto) 62.5 (34.0-71.1) % Lymph % (Auto) 25.4 (19.3-51.7) % [place] % (Auto) 8.7 (4.7-12.5) % Eos % (Auto) 2.9 (0.7-5.8) Baso % (Auto) 0.4 (0.1-1.2) % Neut # (Auto) 5.23 (1.56-6.13) K/mm3 Lymph # (Auto) 2.12 (1.18-3.74) K/mm3 [place] # (Auto) 0.73 H (0.24-0.36) K/mm3 Eos # (Auto) 0.24 (0.04-0.36) K/mm3 Baso # (Auto) 0.03 (0.01-0.08) K/mm3 Sodium (136-145) mEq/L Potassium (3.5-5.1) mEq/L Chloride (98-107) mEq/L Carbon Dioxide (21-32) mEq/L Anion Gap (5-15) BUN (7-18) mg/dL Creatinine (0.55-1.02) mg/dL Est Cr Clr Drug Dosing mL/min Estimated GFR (MDRD) (>60) mL/min BUN/Creatinine Ratio (14-18) Glucose (70-99) mg/dL Calcium (8.5-10.1) mg/dL Magnesium (1.8-2.4) mg/dL Total Bilirubin (0.2-1.0) mg/dL AST (15-37) U/L ALT (14-59) U/L Alkaline Phosphatase (46-116) U/L C-Reactive Protein (<1.0) mg/dL Total Protein (6.4-8.2) g/dl Albumin (3.4-5.0) g/dl Globulin gm/dL Albumin/Globulin Ratio (1-2) Urine Color Yellow (Yellow) Urine Appearance Clear (Clear) Urine pH 6.0 (5.0-8.0) Ur Specific Loving > or = 1.030 (1.005-1.030) Urine Protein Negative (Negative) Urine Glucose (UA) Negative (Negative) Urine Ketones Negative (Negative) Urine Occult Blood Negative (Negative) Urine Nitrite Negative (Negative) Urine Bilirubin Negative (Negative) Urine Urobilinogen 0.2 (0.2-1.0) Ur Leukocyte Esterase Negative (Negative) Urine HCG, Qual Negative (NEGATIVE) 01/10/21 Range/Units 12:52 WBC (3.98-10.04) K/mm3 RBC (3.98-5.22) M/mm3 Hgb (11.2-15.7) gm/dl Hct (34.1-44.9) % MCV (79.4-94.8) fl MCH (25.6-32.2) pg MCHC (32.2-35.5) g/dl RDW Std Deviation (36.4-46.3) fL Plt Count (182-369) K/mm3 MPV (9.4-12.3) fl Neut % (Auto) (34.0-71.1) % Lymph % (Auto) (19.3-51.7) % Prairie % (Auto) (4.7-12.5) % Eos % (Auto) (0.7-5.8) Baso % (Auto) (0.1-1.2) % Neut # (Auto) (1.56-6.13) K/mm3 Lymph # (Auto) (1.18-3.74) K/mm3 [place] # (Auto) (0.24-0.36) K/mm3 Eos # (Auto) (0.04-0.36) K/mm3 Baso # (Auto) (0.01-0.08) K/mm3 Sodium 140 (136-145) mEq/L Potassium 3.9 (3.5-5.1) mEq/L Chloride 104 (98-107) mEq/L Carbon Dioxide 28 (21-32) mEq/L Anion Gap 11.9 (5-15) BUN 8 (7-18) mg/dL Creatinine 0.8 (0.55-1.02) mg/dL Est Cr Clr Drug Dosing 90.00 mL/min Estimated GFR (MDRD) > 60 (>60) mL/min BUN/Creatinine Ratio 10.0 L (14-18) Glucose 87 (70-99) mg/dL Calcium 8.8 (8.5-10.1) mg/dL Magnesium 2.0 (1.8-2.4) mg/dL Total Bilirubin 0.2 (0.2-1.0) mg/dL AST 14 L (15-37) U/L ALT 21 (14-59) U/L Alkaline Phosphatase 78 (46-116) U/L C-Reactive Protein 0.2 (<1.0) mg/dL Total Protein 7.5 (6.4-8.2) g/dl Albumin 3.7 (3.4-5.0) g/dl Globulin 3.8 gm/dL Albumin/Globulin Ratio 1.0 (1-2) Urine Color (Yellow) Urine Appearance (Clear) Urine pH (5.0-8.0) Ur Specific Loving (1.005-1.030) Urine Protein (Negative) Urine Glucose (UA) (Negative) Urine Ketones (Negative) Urine Occult Blood (Negative) Urine Nitrite (Negative) Urine Bilirubin (Negative) Urine Urobilinogen (0.2-1.0) Ur Leukocyte Esterase (Negative) Urine HCG, Qual (NEGATIVE) Meds: Medications Generic Name Dose Route Start Last Admin Trade Name Susan PRN Reason Stop Dose Admin Sodium Chloride 10 ml 01/10/21 12:41 01/10/21 13:04 Sodium Chloride 0.9% 10 Ml Syringe FLUSH 10 ml ASDIRECTED PRN Administration Keep Vein Open Discontinued Medications Generic Name Dose Route Start Last Admin Trade Name Susan PRN Reason Stop Dose Admin Hydromorphone HCl 0.5 mg 01/10/21 15:29 Hydromorphone 0.5 Mg/0.5 Ml Syringe IVPUSH 01/10/21 15:30 ONETIME ONE Ketorolac Tromethamine 30 mg 01/10/21 12:41 01/10/21 13:04 Ketorolac 30 Mg/Ml Sdv IVPUSH 01/10/21 12:42 30 mg ONETIME ONE Administration - Re-Assessments/Exams Free Text/Narrative Re-Assessment/Exam: 01/10/21 13:31 Hematology reveals a WBC of 8.36, hemoglobin 14.4, hematocrit 43.9, platelet count 424 Chemistry is essentially unremarkable, C-reactive protein less than 0.2, urinalysis is unremarkable Patient is not . I will order a transvaginal ultrasound non-OB 01/10/21 15:15 Since retro-Radiologist impression pelvic ultrasound: Verted. No myometrial abnormality is seen. Nabothian cysts are present. Endometrial thickness is 8.4 mm Follicles are noted within both ovaries. Slightly prominent vasculature is seen within the right adnexa compatible with minimal pelvic vascular congestion. Small amount of free fluid is seen which is believed to be physiologic. Impression: 1. Slightly prominent vasculature within the right adnexa most likely representing minimal pelvic congestion. 2. Nabothian cysts and minimal free fluid. Departure - Departure Time of Disposition: 15:54 Disposition: Home, Self-Care 01 Condition: Good Clinical Impression: Pain in pelvis, Nabothian cyst - Discharge Information Prescriptions: Naproxen 500 mg PO Q12H #10 tablet. Instructions: Pelvic Pain, Female, [id number] Referrals: PCP,None [Primary Care Provider] - Forms: ED Department Discharge Additional Instructions: You were seen in the emergency department today with complaints of pelvic pain. Labs were completed as well as urinalysis and these were all essentially unremarkable. Ultrasound was completed which did show Nabothian cysts which is likely the cause of your discomfort. Treatment for this is nonsteroidal anti- inflammatory medications. I have sent a prescription for naproxen to your pharmacy. You can take 1 tablet every 12 hours as needed. Be sure to take this medication with food as it can cause stomach upset. Pelvic exam was completed and specimens were sent to the lab. I will call you if you need to be treated for any sort of infection. Otherwise if you do not hear from me it was negative. If you are not better in about a week, recommend that you follow-up with an HEADMASTER/MISTRESS. Sepsis Event Note (ED) - Focused Exam Vital Signs: Vital Signs Temp Pulse Resp BP Pulse Ox 01/10/21 12:02 97.9 F 76 18 121/81 100 - My Orders Last 24 Hours: My Active Orders 01/10/21 12:41 Sodium Chloride 0.9% [Saline Flush] 10 ml FLUSH ASDIRECTED PRN Saline Lock Insert [OM.PC] Stat 01/10/21 15:52 WET PREP [MYC] Stat - Assessment/Plan Last 24 Hours: My Active Orders 01/10/21 12:41 Sodium Chloride 0.9% [Saline Flush] 10 ml FLUSH ASDIRECTED PRN Saline Lock Insert [OM.PC] Stat 01/10/21 15:52 WET PREP [MYC] Stat
--- NOTE | 2021-01-10 15:01 | US ---
Pelvic ultrasound: Multiple real-time images were obtained transvaginally. Comparison: Prior pelvic ultrasound of 11/15/19. Uterus is retroverted. No myometrial abnormality is seen. Nabothian cysts are present. Endometrial thickness is 8.4 mm. Follicles are noted within both ovaries. Slightly prominent vasculature is seen within the right adnexa compatible with minimal pelvic vascular congestion. Small amount of free fluid is seen which is believed to be physiologic. Measurements: Right ovary: 4.0 x 1.8 x 2.4 cm Left ovary: 2.4 x 1.8 x 2.3 cm Uterus: Length 8.0 cm, AP height 4.8 cm, transverse width 6.0 cm Impression: 1. Slightly prominent vasculature within the right adnexa most likely representing minimal pelvic congestion. 2. Nabothian cysts and minimal free fluid. Diagnostic code #2
[2021-01-10] MEDS ORDERED: HYDROmorphone 0.5 MG/0.5 ML Syringe IVPUSH ONE (15:29)
== END 2021-01-10 16:10 | disposition home or self-care (01) ==
LOC: JD.ED 11:51
DX: N88.8 Other specified noninflammatory disorders of cervix uteri (principal); Z88.2 Allergy status to sulfonamides
CPT/HCPCS: 36415; 76830; 80053; 81003; 81025; 83735; 85025; 86140; 87210; 87808; 96374; 96375; 99284; J1170; J1885; 99283

== ENCOUNTER 2021-03-09 13:38 | Emergency (ER) | payer MEDICAID ==
[2021-03-09] MEDS ORDERED: HYDROmorphone 0.5 MG/0.5 ML Syringe IVPUSH ONE (14:41)
[2021-03-09] MEDS ORDERED: Sodium Chloride 0.9% 1,000 ML IV STA (14:41)
[2021-03-09] MEDS ORDERED: Ondansetron 4 MG/2 ML SDV IVPUSH ONE (14:41)
[2021-03-09] MEDS ORDERED: Sodium Chloride 0.9% 10 ML Syringe FLUSH PRN (14:41)
--- NOTE | 2021-03-09 16:16 | US ---
First trimester obstetrical ultrasound: Multiple real-time images were obtained transvaginally. Comparison: No previous imaging for this . Uterus is retroverted. There is a very minimal cystic area being seen within the endometrial cavity measuring 3.1 x 0.9 x 1.5 mm. Difficult to exclude very early . This would measure about 4 weeks 5 days if this does represent a . Maternal ovaries are unremarkable. No free fluid is seen. Incidental nabothian cyst is present. Minimally prominent venous structures are seen within the right adnexa. Impression: 1. Questionable very small gestational sac with measurements correlating to 4 weeks 5 days. Follow-up study could be obtained in 2-3 weeks to confirm if clinically needed. 2. Small nabothian cyst. Slightly prominent venous structures within the right adnexa. 3. Other portions of the study appear unremarkable. Diagnostic code #1
--- NOTE | 2021-03-09 17:09 | EDM.PDOC ---
ED HPI GENERAL MEDICAL PROBLEM - General Chief Complaint: SECURITY VEHICLE PATROL OFFICER Problem Stated Complaint: BACK PAIN\ 6 WK OB Time Seen by Provider: 03/09/21 14:30 - History of Present Illness INITIAL COMMENTS - FREE TEXT/NARRATIVE: Patient is a 35-year-old A1 female presenting to the emergency department with complaints of pelvic cramping and vaginal spotting. States she developed some light brownish spotting 2 days ago and it is changed into more of a pinkish-red spotting. It is slightly heavier, however it does not require the use of a pad. Is only visible when wiping. Complains of pelvic cramping radiating through to her back, worse on the right than the left. Patient did have a positive at home test. Last menstrual period was January 25.Past records indicate patient is A+. She has taken no [id number] medications for pain relief. Her SECURITY VEHICLE PATROL OFFICER is Dr. Thomas, however he was not in the office today. She is was scheduled to see Dr. Jefferson, however he was called into a delivery so was recommended that she come to the ER for evaluation. Lower Back Pain Score (Numeric/FACES): 7 - Related Data Allergies Allergy/AdvReac Type Severity Reaction Status Date / Time Sulfa (Sulfonamide Allergy Intermediate Rash Verified 03/11/21 12:15 Antibiotics) Home Meds: Home Meds . [No Known Home Meds] 03/09/21 [History] Past Medical History - Past Health History Medical/Surgical History: Denies Medical/Surgical History HEENT History: Reports: None Cardiovascular History: Reports: None Respiratory History: Reports: Asthma Gastrointestinal History: Reports: Cholelithiasis Genitourinary History: Reports: None SECURITY VEHICLE PATROL OFFICER History: Reports: Other SECURITY VEHICLE PATROL OFFICER History: vaginal delivery; no complications with 1st , subchorionic bleed. 4 pregnancies and one misscariage Musculoskeletal History: Reports: None Neurological History: Reports: None Psychiatric History: Reports: None Endocrine/Metabolic History: Reports: None Hematologic History: Reports: None Immunologic History: Reports: None Oncologic (Cancer) History: Reports: None Dermatologic History: Reports: None - Infectious Disease History Infectious Disease History: Reports: Chicken Pox - Past Surgical History Head Surgeries/Procedures: Reports: None HEENT Surgical History: Reports: None GI Surgical History: Reports: Cholecystectomy Social & Family History - Family History Family Medical History: No Pertinent Family History - Tobacco Use Tobacco Use Status *Q: Never Tobacco User - Caffeine Use Caffeine Use: Reports: None - Recreational Drug Use Recreational Drug Use: No ED ROS GENERAL - Review of Systems Review Of Systems: Comprehensive ROS is negative, except as noted in HPI. ED EXAM - Physical Exam Exam: See Below Text/Narrative:: Triage vital signs reviewed. Exam Limited By: No Limitations General Appearance: Alert, WD/WN, No Apparent Distress Respiratory/Chest: No Respiratory Distress, Lungs Clear, Normal Breath Sounds, No Accessory Muscle Use, Chest Non-Tender Cardiovascular: Normal Peripheral Pulses, Regular Rate, Rhythm, No Edema, No Gallop, No JVD, No Murmur, No Rub GI/Abdominal Exam: Normal Bowel Sounds, Soft, No Organomegaly, No Distention, No Abnormal Bruit, No Mass, Pelvis Stable, Tender (Mild suprapubic tenderness, worse on the right than the left.) (Female) Exam: Normal External Exam, Vaginal Bleeding (Very small amount). No: Cervical Dilatation, Cervical Fluid, Cervical Lesions Neurological: Alert, Oriented, CN II-XII Intact, Normal Cognition, Normal Gait, Normal Reflexes, No Motor/Sensory Deficits Psychiatric: Normal Affect Skin Exam: Warm, Dry, Intact, Normal Color, No Rash Course - Vital Signs Last Recorded V/S: Last Vital Signs Temp 97.4 F 03/09/21 16:45 Pulse 84 03/09/21 16:45 Resp 18 03/09/21 16:45 BP 109/82 03/09/21 16:45 Pulse Ox 98 03/09/21 16:45 - Orders/Labs/Meds Labs: Laboratory Tests 03/09/21 03/09/21 03/09/21 Range/Units 14:55 14:55 14:55 WBC 7.86 (3.98-10.04) K/mm3 RBC 4.93 (3.98-5.22) M/mm3 Hgb 14.1 (11.2-15.7) gm/dl Hct 43.8 (34.1-44.9) % MCV 88.8 (79.4-94.8) fl MCH 28.6 (25.6-32.2) pg MCHC 32.2 (32.2-35.5) g/dl RDW Std Deviation 43.7 (36.4-46.3) fL Plt Count 413 H (182-369) K/mm3 MPV 8.8 L (9.4-12.3) fl Neut % (Auto) 68.0 (34.0-71.1) % Lymph % (Auto) 16.7 L (19.3-51.7) % Hendricks % (Auto) 11.5 (4.7-12.5) % Eos % (Auto) 3.4 (0.7-5.8) Baso % (Auto) 0.3 (0.1-1.2) % Neut # (Auto) 5.35 (1.56-6.13) K/mm3 Lymph # (Auto) 1.31 (1.18-3.74) K/mm3 [place]ricks # (Auto) 0.90 H (0.24-0.36) K/mm3 Eos # (Auto) 0.27 (0.04-0.36) K/mm3 Baso # (Auto) 0.02 (0.01-0.08) K/mm3 Sodium 138 (136-145) mEq/L Potassium 3.5 (3.5-5.1) mEq/L Chloride 104 (98-107) mEq/L Carbon Dioxide 26 (21-32) mEq/L Anion Gap 11.5 (5-15) BUN 9 (7-18) mg/dL Creatinine 0.8 (0.55-1.02) mg/dL Est Cr Clr Drug Dosing 90.00 mL/min Estimated GFR (MDRD) > 60 (>60) mL/min BUN/Creatinine Ratio 11.3 L (14-18) Glucose 96 (70-99) mg/dL Calcium 8.6 (8.5-10.1) mg/dL Total Bilirubin 0.2 (0.2-1.0) mg/dL AST 11 L (15-37) U/L ALT 16 (14-59) U/L Alkaline Phosphatase 74 (46-116) U/L Total Protein 7.5 (6.4-8.2) g/dl Albumin 3.6 (3.4-5.0) g/dl Globulin 3.9 gm/dL Albumin/Globulin Ratio 0.9 L (1-2) HCG, Quant 1192.0 mIU/mL Urine Color (Yellow) Urine Appearance (Clear) Urine pH (5.0-8.0) Ur Specific [place] (1.005-1.030) Urine Protein (Negative) Urine Glucose (UA) (Negative) Urine Ketones (Negative) Urine Occult Blood (Negative) Urine Nitrite (Negative) Urine Bilirubin (Negative) Urine Urobilinogen (0.2-1.0) Ur Leukocyte Esterase (Negative) Urine RBC (0-5) /hpf Urine WBC (0-5) /hpf Ur Epithelial Cells (0-5) /hpf Urine Bacteria (FEW) /hpf Urine Mucus (FEW) /hpf 03/09/21 Range/Units 15:45 WBC (3.98-10.04) K/mm3 RBC (3.98-5.22) M/mm3 Hgb (11.2-15.7) gm/dl Hct (34.1-44.9) % MCV (79.4-94.8) fl MCH (25.6-32.2) pg MCHC (32.2-35.5) g/dl RDW Std Deviation (36.4-46.3) fL Plt Count (182-369) K/mm3 MPV (9.4-12.3) fl Neut % (Auto) (34.0-71.1) % Lymph % (Auto) (19.3-51.7) % Hendricks % (Auto) (4.7-12.5) % Eos % (Auto) (0.7-5.8) Baso % (Auto) (0.1-1.2) % Neut # (Auto) (1.56-6.13) K/mm3 Lymph # (Auto) (1.18-3.74) K/mm3 Hendricks # (Auto) (0.24-0.36) K/mm3 Eos # (Auto) (0.04-0.36) K/mm3 Baso # (Auto) (0.01-0.08) K/mm3 Sodium (136-145) mEq/L Potassium (3.5-5.1) mEq/L Chloride (98-107) mEq/L Carbon Dioxide (21-32) mEq/L Anion Gap (5-15) BUN (7-18) mg/dL Creatinine (0.55-1.02) mg/dL Est Cr Clr Drug Dosing mL/min Estimated GFR (MDRD) (>60) mL/min BUN/Creatinine Ratio (14-18) Glucose (70-99) mg/dL Calcium (8.5-10.1) mg/dL Total Bilirubin (0.2-1.0) mg/dL AST (15-37) U/L ALT (14-59) U/L Alkaline Phosphatase (46-116) U/L Total Protein (6.4-8.2) g/dl Albumin (3.4-5.0) g/dl Globulin gm/dL Albumin/Globulin Ratio (1-2) HCG, Quant mIU/mL Urine Color Yellow (Yellow) Urine Appearance Slt cloudy H (Clear) Urine pH 6.0 (5.0-8.0) Ur Specific [place] > or = 1.030 (1.005-1.030) Urine Protein Negative (Negative) Urine Glucose (UA) Negative (Negative) Urine Ketones 1+ H (Negative) Urine Occult Blood Trace-intact H (Negative) Urine Nitrite Negative (Negative) Urine Bilirubin 1+ H (Negative) Urine Urobilinogen 0.2 (0.2-1.0) Ur Leukocyte Esterase Negative (Negative) Urine RBC 0-5 (0-5) /hpf Urine WBC 0-5 (0-5) /hpf Ur Epithelial Cells 5-10 H (0-5) /hpf Urine Bacteria Few (FEW) /hpf Urine Mucus Moderate H (FEW) /hpf Meds: Medications Discontinued Medications Generic Name Dose Route Start Last Admin Trade Name Freq PRN Reason Stop Dose Admin Hydromorphone HCl 0.5 mg 03/09/21 14:41 03/09/21 14:58 Hydromorphone 0.5 Mg/0.5 Ml Syringe IVPUSH 03/09/21 14:42 0.5 mg ONETIME ONE Administration Sodium Chloride 1,000 mls @ 150 mls/hr 03/09/21 14:41 03/09/21 15:02 Normal Saline IV 03/09/21 21:20 150 mls/hr NOW STA Administration Ondansetron HCl 4 mg 03/09/21 14:41 03/09/21 14:56 Ondansetron 4 Mg/2 Ml Sdv IVPUSH 03/09/21 14:42 4 mg ONETIME ONE Administration Sodium Chloride 10 ml 03/09/21 14:41 03/09/21 14:56 Sodium Chloride 0.9% 10 Ml Syringe FLUSH 10 ml ASDIRECTED PRN Administration Keep Vein Open - Re-Assessments/Exams Free Text/Narrative Re-Assessment/Exam: Patient is a 35-year-old female presenting to the emergency department with complaints of pelvic cramping and vaginal spotting in . Last menstrual period was January 25. On exam, she has some mild suprapubic tenderness. Reports bleeding is minimal and does not require a pad. I have ordered blood work, urinalysis, transvaginal ultrasound. I will give IV fluids, Zofran, Dilaudid. Plan for pelvic exam once ultrasound complete. 03/09/21 17:04 Hematology is grossly unremarkable. Quantitative hCG elevated at 1192. Urinalysis is negative for infection or bacteria. . Transvaginal ultrasound impression as follows: 1. Questionable very small gestational sac with measurements correlating to 4 weeks 5 days. Follow-up study could be obtained in 2 to 3 weeks to confirm if clinically needed. 2. Small nabothian cyst. Slightly prominent venous structures within the right adnexa. 3. Other portions of the study appear unremarkable. Pelvic exam was completed and showed a very small amount of blood within the vagina. Cervix is closed with no visible abrasions or bleeding. Results discussed with patient. I will recommend that she follow-up with SECURITY VEHICLE [employer]ROL OFFICER in 2 to 3 days to have hCG levels rechecked. Recommend routine Tylenol. She denied the need for anything stronger for pain. Discussed return precautions. Discharge instructions as documented. Departure - Departure Time of Disposition: 17:09 Disposition: Home, Self-Care 01 Condition: Good Clinical Impression: Threatened miscarriage - Discharge Information *PRESCRIPTION DRUG MONITORING PROGRAM REVIEWED*: No *COPY OF PRESCRIPTION DRUG MONITORING REPORT IN PATIENT BRIAN: No Instructions: Threatened Miscarriage Referrals: Glenn Thomas MD [Physician] - Adalberto Jefferson MD [Physician] - Forms: ED Department Discharge Additional Instructions: Use Tylenol as needed for discomfort. Call tomorrow morning to set up follow-up with SECURITY VEHICLE [employer]ROL OFFICER. Return to ER for worsening of pain or heavy bleeding, especially if you are saturating a pad an hour for 2 or more hours. Sepsis Event Note (ED) - Evaluation Sepsis Screening Result: No Definite Risk
== END 2021-03-09 17:50 | disposition home or self-care (01) ==
LOC: JD.ED 13:38
DX: O20.0 Threatened abortion (principal); Z88.2 Allergy status to sulfonamides; Z3A.01 Less than 8 weeks gestation of pregnancy
CPT/HCPCS: 36415; 76817; 80053; 81001; 84702; 85025; 96374; 96375; 99284; J1170; J2405; J7030

== ENCOUNTER 2021-03-11 11:50 | Emergency (ER) | payer SELFPAY ==
[2021-03-11] MEDS ORDERED: Sodium Chloride 0.9% 10 ML Syringe FLUSH PRN (12:16)
[2021-03-11] MEDS ORDERED: HYDROmorphone 0.5 MG/0.5 ML Syringe IVPUSH ONE (12:22)
[2021-03-11] MEDS ORDERED: Ondansetron 4 MG/2 ML SDV IVPUSH ONE (12:22)
--- NOTE | 2021-03-11 12:25 | EDM.PDOC ---
ED HPI GENERAL MEDICAL PROBLEM - General Chief Complaint: [facility] Problem Stated Complaint: 6 WEEKS PG/POSS MISCARRIAGE Time Seen by Provider: 03/11/21 12:04 Source of Information: Reports: Patient, Old Records (visit from 03/09/21), RN Notes Reviewed History Limitations: Reports: No Limitations - History of Present Illness INITIAL COMMENTS - FREE TEXT/NARRATIVE: Patient is a 35-year-old female who presents to the ER for her early and vaginal bleeding. Patient is a A1 with a spontaneous miscarriage last year. States that she was evaluated in this ER roughly 2 days ago, had ultrasound and some labs done, and everything looked okay and was sent home with general recommendations. Patient states she will be following up with Dr. Thomas as far as [facility] services goes. States that everything seemed to be going okay, but she developed worsening vaginal bleeding, states that she is soaking through one "teenage pad" every hour. She is noting some clot-like material as well. States that the blood has darkened in color to a red from a light pink as it was a couple days ago. She became a little bit concerned earlier this morning as she felt a little bit dizzy and lightheaded; so she comes to the ER for re-evaluation. Not having any sick-like symptoms fevers or chills, cough or shortness of breath or any severe nausea/vomiting/diarrhea. States that she did try some Tylenol last night for pain or discomfort and this did not seem to help much. She has not taken anything for pain today. Visit from 03/09/2021 does demonstrate a very early at a roughly 4 weeks 5 days, and look to be intrauterine; Quantitative hCG was 1129 at that time. Abdomen Pain Score (Numeric/FACES): 8 - Related Data Allergies Allergy/AdvReac Type Severity Reaction Status Date / Time Sulfa (Sulfonamide Allergy Intermediate Rash Verified 03/11/21 12:15 Antibiotics) Home Meds: Home Meds . [No Known Home Meds] 03/09/21 [History] Past Medical History Respiratory History: Reports: Asthma Gastrointestinal History: Reports: Cholelithiasis [facility] [employer] History: Reports: , Spontaneous (x1) : 4 Para: 2 - Infectious Disease History Infectious Disease History: Reports: Chicken Pox - Past Surgical History GI Surgical History: Reports: Cholecystectomy Social & Family History - Family History Family Medical History: No Pertinent Family History - Tobacco Use Tobacco Use Status *Q: Never Tobacco User - Caffeine Use Caffeine Use: Reports: None - Recreational Drug Use Recreational Drug Use: No ED ROS GENERAL - Review of Systems Review Of Systems: Comprehensive ROS is negative, except as noted in HPI. ED EXAM - Physical Exam Exam: See Below Exam Limited By: No Limitations General Appearance: Alert, WD/WN, No Apparent Distress Respiratory/Chest: No Respiratory Distress, Lungs Clear, Normal Breath Sounds, No Accessory Muscle Use, Chest Non-Tender Cardiovascular: Normal Peripheral Pulses, Regular Rate, Rhythm, No Edema GI/Abdominal Exam: Normal Bowel Sounds, Soft, No Distention, No Mass, Tender (slight tenderness in pelvis) (Female) Exam: Vaginal Bleeding. No: Tissue Present in Cervix/Vagina Heart Tones: Not [place] Movement: Not Appreciated Extremities: Normal Inspection, Normal Capillary Refill Neurological: Alert, Oriented, Normal Cognition, No Motor/Sensory Deficits Psychiatric: Normal Affect, Normal Mood Skin Exam: Warm, Dry, Intact, Normal Color, No Rash Course - Vital Signs Last Recorded V/S: Last Vital Signs Temp 97.5 F 03/11/21 12:12 Pulse 101 H 03/11/21 12:12 Resp 16 03/11/21 12:12 BP 120/95 H 03/11/21 12:12 Pulse Ox 99 03/11/21 12:12 - Orders/Labs/Meds Orders: Active Orders 24 hr Category Date Time Status Peripheral IV Insertion Adult [OM.PC] Stat Oth 03/11/21 12:16 Ordered Labs: Laboratory Tests 03/11/21 03/11/21 03/11/21 Range/Units 12:30 12:30 12:30 WBC 6.66 (3.98-10.04) K/mm3 RBC 4.84 (3.98-5.22) M/mm3 Hgb 14.0 (11.2-15.7) gm/dl Hct 42.9 (34.1-44.9) % MCV 88.6 (79.4-94.8) fl MCH 28.9 (25.6-32.2) pg MCHC 32.6 (32.2-35.5) g/dl RDW Std Deviation 43.7 (36.4-46.3) fL Plt Count 415 H (182-369) K/mm3 MPV 8.8 L (9.4-12.3) fl Neut % (Auto) 66.8 (34.0-71.1) % Lymph % (Auto) 19.5 (19.3-51.7) % [place] % (Auto) 8.7 (4.7-12.5) % Eos % (Auto) 4.5 (0.7-5.8) Baso % (Auto) 0.3 (0.1-1.2) % Neut # (Auto) 4.45 (1.56-6.13) K/mm3 Lymph # (Auto) 1.30 (1.18-3.74) K/mm3 Bradford # (Auto) 0.58 H (0.24-0.36) K/mm3 Eos # (Auto) 0.30 (0.04-0.36) K/mm3 Baso # (Auto) 0.02 (0.01-0.08) K/mm3 HCG, Quant 2301.0 mIU/mL Blood Type A POSITIVE Meds: Medications Discontinued Medications Generic Name Dose Route Start Last Admin Trade Name Freq PRN Reason Stop Dose Admin Hydromorphone HCl 0.5 mg 03/11/21 12:22 03/11/21 12:54 Hydromorphone 0.5 Mg/0.5 Ml Syringe IVPUSH 03/11/21 12:23 0.5 mg ONETIME ONE Administration Sodium Chloride 1,000 mls @ 999 mls/hr 03/11/21 13:18 03/11/21 13:28 Normal Saline IV 03/11/21 14:18 999 mls/hr ONETIME ONE Administration Ondansetron HCl 4 mg 03/11/21 12:22 03/11/21 12:54 Ondansetron 4 Mg/2 Ml Sdv IVPUSH 03/11/21 12:23 4 mg ONETIME ONE Administration Sodium Chloride 10 ml 03/11/21 12:16 03/11/21 12:54 Sodium Chloride 0.9% 10 Ml Syringe FLUSH 10 ml ASDIRECTED PRN Administration Keep Vein Open - Re-Assessments/Exams Free Text/Narrative Re-Assessment/Exam: 03/11/21 14:22 Patient presents to the ER for her vaginal bleeding and abdominal pain in . Patient's hCG did go up, and is at a level of 2301, and hemoglobin is within normal limits at this time so she has not lost too much blood. Transvaginal ultrasound did demonstrate an approximate 5 mm fluid collection with the endometrium but no definite pole or yolk sac, measurements on the ultrasound itself measured about 5 weeks 2 days gestation, they do recommend clinical correlation with beta hCG values and follow-up imaging in about 7 to 13 days to reassess determine if this may represent early gestational sac. Again she had a positive test, and elevating hCG, with findings of possible within the uterus yet. So it appears to be threatened miscarriage at this time we will go ahead and have her proceed with activity restriction, monitor her vaginal bleeding and follow-up with Dr. Thomas in 2 days for ongoing management. This would be for repeat hCG testing. Departure - Departure Time of Disposition: 14:24 Disposition: Home, Self-Care 01 Condition: Good Clinical Impression: Threatened miscarriage in early - Discharge Information *PRESCRIPTION DRUG MONITORING PROGRAM REVIEWED*: No *COPY OF PRESCRIPTION DRUG MONITORING REPORT IN PATIENT BRIAN: No Instructions: Threatened Miscarriage, [id number] Referrals: PCP,None [Primary Care Provider] - Forms: ED Department Discharge Additional Instructions: You were evaluated in the ER today regarding your abdominal pain/vaginal bleeding in . You did have some labs drawn, and these were within normal limits, your hCG level was 2301; which is increased from your last visit of 1192. This is reassuring. Your blood type is A+. Your ultrasound demonstrated findings consistent with early within the endometrium, or in the uterus. They do recommend clinical correlation with follow-up beta hCG values, and follow-up imaging in about a week to 2 weeks for reassessment. Recommend that you do not lift anything heavier than a gallon of milk (5 lbs), do not engage in sexual activities, try to get as much pelvic rest as possible for the next few days. Please try not to exert yourself, rest and relax, and take it easy. If you are bleeding through more than 1-2 maxi pads every couple hours, this would be cause for concern to return to the ER for immediate management. Please follow up with your [facility] on Saturday for repeat hCG testing, and for reassessment to make sure things are getting better as expected. Please return to the ED at any time if your symptoms change or worsen. Sepsis Event Note (ED) - Evaluation Sepsis Screening Result: No Definite Risk - Focused Exam Vital Signs: Vital Signs Temp Pulse Resp BP Pulse Ox 03/11/21 12:12 97.5 F 101 H 16 120/95 H 99 - My Orders Last 24 Hours: My Active Orders 03/11/21 12:16 Peripheral IV Insertion Adult [OM.PC] Stat - Assessment/Plan Last 24 Hours: My Active Orders 03/11/21 12:16 Peripheral IV Insertion Adult [OM.PC] Stat
[2021-03-11] MEDS ORDERED: Sodium Chloride 0.9% 1,000 ML IV ONE (13:18)
--- NOTE | 2021-03-11 18:00 | US ---
First trimester obstetrical ultrasound: Multiple real-time images were obtained transvaginally. Comparison: Prior obstetrical imaging of 03/09/21. Findings: Small cystic area is seen within the endometrium. This has gestational sac dimensions of 9.0 x 5.1 x 5.9 cm. Right and left ovaries appear within normal limits. No free fluid is seen. Impression: 1. Small cystic area within the endometrium. This cystic area, if representing a gestational sac, has a size of 5 weeks 2 days which has increased from prior exam. This finding is too early to clearly confirm gestational . Follow-up study is recommended ideally in 2 weeks if any further clinical questions remain. 2. No additional abnormality is appreciated. Diagnostic code #3 I agree with preliminary report from [facility] finalized on 03/11/21, 3:04 PM CDT, code 1
== END 2021-03-11 14:54 | disposition home or self-care (01) ==
LOC: JD.ED 11:50
DX: O20.0 Threatened abortion (principal); Z3A.01 Less than 8 weeks gestation of pregnancy; Z88.2 Allergy status to sulfonamides
CPT/HCPCS: 36415; 76817; 84702; 85025; 86900; 86901; 96374; 96375; 99284; J1170; J2405; J7030

== ENCOUNTER 2022-02-08 22:07 | Emergency (ER) | payer OTHER ==
[2022-02-08] MEDS ORDERED: Morphine 4 MG/ML Syringe IVPUSH ONE (23:30)
[2022-02-08] MEDS ORDERED: Ondansetron 4 MG/2 ML SDV IVPUSH ONE (23:30)
[2022-02-08] MEDS ORDERED: Lactated Ringers 1,000 ML IV ONE (23:30)
[2022-02-08] MEDS ORDERED: Lactated Ringers 1,000 ML IV SCH (23:30)
[2022-02-09] MEDS ORDERED: Iopamidol 612 MG/ML 100 ML Bottle IVPUSH ONE (01:02)
[2022-02-09] MEDS ORDERED: Sodium Chloride 0.9% 10 ML Syringe FLUSH ONE (01:02)
== END 2022-02-09 03:17 | disposition home or self-care (01) ==
LOC: JD.ED 22:07
DX: N83.201 Unspecified ovarian cyst, right side (principal); Z88.2 Allergy status to sulfonamides; Z86.16 Personal history of COVID-19; Z90.49 Acquired absence of other specified parts of digestive tract
CPT/HCPCS: 36415; 74177; 80053; 81003; 81025; 85025; 96374; 96375; 99284; J2270; J2405; J3490; J7120; Q9967; 99283

== ENCOUNTER 2022-07-07 11:41 | Emergency (ER) | payer OTHER | END 2022-07-07 13:30 | disposition home or self-care (01) | LOC: JD.ED 11:41 | DX: O26.852 Spotting complicating pregnancy, second trimester (principal); Z3A.16 16 weeks gestation of pregnancy; Z88.2 Allergy status to sulfonamides; Z86.16 Personal history of COVID-19 | CPT/HCPCS: 99283 ==

== ENCOUNTER 2022-12-11 11:33 | Inpatient (IN) | payer OTHER ==
[2022-12-11] MEDS ORDERED: Acetaminophen/Butalbital/Caffeine 325-50-40 MG Tab PO ONE (12:24)
[2022-12-11 12:34] LABS: BASOPHILS ABSOLUTE AUTO 0.01 K/mm3 (0.01-0.08); BASOPHILS PERCENT AUTO 0.1 % (0.1-1.2); EOSINOPHILS ABSOLUTE AUTO 0.23 K/mm3 (0.04-0.36); EOSINOPHILS PERCENT AUTO 2.6 (0.7-5.8); HEMATOCRIT 33.3 % (34.1-44.9); HEMOGLOBIN 10.9 gm/dl (11.2-15.7); IMMATURE GRAN ABSOLUTE AUTO 0.04 K/mm3 (0.00-0.10); IMMATURE GRAN PERCENT AUTO 0.5 % (<=1.0); LYMPHOCYTES ABSOLUTE AUTO 1.73 K/mm3 (1.18-3.74); LYMPHOCYTES PERCENT AUTO 19.6 % (19.3-51.7); MEAN CORPUSCULAR HEMOGLOBIN 29.5 pg (25.6-32.2); MEAN CORPUSCULAR HGB CONC 32.7 g/dl (32.2-35.5); MEAN PLATELET VOLUME 10.5 fl (9.4-12.3); MONOCYTES ABSOLUTE AUTO 0.65 K/mm3 (0.24-0.36); MONOCYTES PERCENT AUTO 7.4 % (4.7-12.5); NEUTROPHILS ABSOLUTE AUTO 6.17 K/mm3 (1.56-6.13); NEUTROPHILS PERCENT AUTO 69.8 % (34.0-71.1); PLATELET COUNT,PLT 259 K/mm3 (182-369); WHITE BLOOD CELL COUNT,WBC 8.83 K/mm3 (3.98-10.04)
[2022-12-11 12:53] LABS: PROTEIN CREATININE RATIO,URINE 377.4 mg/g (0-149); PROTEIN,URINE RANDOM 11.7 mg/dL (0.0-11.8)
[2022-12-11 12:57] LABS: A/G RATIO 0.5 (1-2); ALBUMIN 2.1 g/dl (3.4-5.0); ANION GAP 15.8 (5-15); BILIRUBIN TOTAL 0.2 mg/dL (0.2-1.0); BUN/CREATININE RATIO 11.3 (14-18); CALCIUM 9.1 mg/dL (8.5-10.1); CREATININE 0.8 mg/dL (0.55-1.02); EST CRCL DRUG DOSING (CG) 88.32 mL/min; POTASSIUM,K 2.8 mEq/L (3.5-5.1); PROTEIN TOTAL,TP 6.1 g/dl (6.4-8.2)
[2022-12-11] MEDS ORDERED: Nalbuphine 10 MG/0.5 ML Syringe IVPUSH PRN (14:18)
[2022-12-11] MEDS ORDERED: Calcium Carbonate 500 MG Tab.Chew PO PRN (14:18)
[2022-12-11] MEDS ORDERED: Ondansetron 4 MG/2 ML SDV IVPUSH PRN (14:18)
[2022-12-11] MEDS ORDERED: Sodium Chloride 0.9% 10 ML Syringe FLUSH PRN (14:18)
[2022-12-11] MEDS ORDERED: Oxytocin/Lactated Ringers 10 UNIT/1,000 ML BAG IV SCH ×2 (14:30)
[2022-12-11] MEDS: Lactated Ringers 1,000 ML IV SCH ×2 (14:45→20:50)
[2022-12-11] MEDS ORDERED: Bupivacaine/fentaNYL/NS 100 ML Bag EPIDUR PRN (19:23)
[2022-12-11] MEDS ORDERED: fentaNYL 100 MCG/2 ML SDV EPIDUR PRN (19:23)
[2022-12-11] MEDS ORDERED: ePHEDrine 50 MG/ML SDV IVPUSH PRN (19:23)
[2022-12-11] MEDS ORDERED: diphenhydrAMINE 50 MG/ML SDV IVPUSH PRN (19:23)
[2022-12-12] MEDS ORDERED: Bupivacaine 0.25% 10 ML SDV ONE
[2022-12-12] MEDS ORDERED: Witch Hazel Medicated Pads 40/Jar TOP PRN (02:37)
[2022-12-12] MEDS ORDERED: Acetaminophen 325 MG Tab PO PRN (02:37)
[2022-12-12] MEDS ORDERED: Oxytocin/Lactated Ringers 10 UNIT/1,000 ML BAG IV SCH (02:37)
[2022-12-12] MEDS ORDERED: Benzocaine/Menthol 20%-0.5% Spray 78 GM Cannister TOP PRN (02:37)
[2022-12-12] MEDS ORDERED: Docusate Sodium 100 MG Cap PO PRN (02:37)
[2022-12-12] MEDS ORDERED: Hydrocortisone Acetate 25 MG Supp RECTAL PRN (02:37)
[2022-12-12] MEDS ORDERED: Magnesium Hydroxide 400 MG/5 ML Susp 30 ML Cup PO PRN (02:37)
[2022-12-12] MEDS: Ibuprofen 600 MG Tab PO PRN ×3 (07:03→20:09)
[2022-12-12] MEDS: Prenatal Multivitamin with Calcium/Folic Acid/Iron Tab PO SCH (16:48)
[2022-12-13] MEDS: Ibuprofen 600 MG Tab PO PRN ×2 (04:14→15:11)
[2022-12-13] MEDS: Prenatal Multivitamin with Calcium/Folic Acid/Iron Tab PO SCH (12:32)
== END 2022-12-13 18:10 | disposition home or self-care (01) | DRG 807 ==
LOC: JD.OBCHECK 11:33 → JD.OB 11:37 → JD.OBCHECK 12:40 → JD.OB 15:09 → OBSVTOIN 12-12 01:56
PROVIDERS: ADMIT Obstetrics & Gynecology; ATTEND Obstetrics & Gynecology
PROC: 10E0XZZ Delivery of Products of Conception, External Approach (ICD-10-PCS; principal; 2022-12-12)
PROC: 0KQM0ZZ Repair Perineum Muscle, Open Approach (ICD-10-PCS; 2022-12-12)
PROC: 10907ZC Drainage of Amniotic Fluid, Therapeutic from Products of Conception, Via Natural or Artificial Opening (ICD-10-PCS; 2022-12-12)
PROC: 3E033VJ Introduction of Other Hormone into Peripheral Vein, Percutaneous Approach (ICD-10-PCS; 2022-12-12)
PROC: 0UQMXZZ Repair Vulva, External Approach (ICD-10-PCS; 2022-12-12)
PROC: 3E0R3BZ Introduction of Anesthetic Agent into Spinal Canal, Percutaneous Approach (ICD-10-PCS; 2022-12-12)
PROC: 00HU33Z Insertion of Infusion Device into Spinal Canal, Percutaneous Approach (ICD-10-PCS; 2022-12-12)
DX: O14.04 Mild to moderate pre-eclampsia, complicating childbirth (principal); Z37.0 Single live birth; O70.1 Second degree perineal laceration during delivery; O99.62 Diseases of the digestive system complicating childbirth; O99.214 Obesity complicating childbirth; O70.0 First degree perineal laceration during delivery; K21.9 Gastro-esophageal reflux disease without esophagitis; Z88.2 Allergy status to sulfonamides; Z90.49 Acquired absence of other specified parts of digestive tract; Z3A.38 38 weeks gestation of pregnancy; Z98.890 Other specified postprocedural states
CPT/HCPCS: 01967; 36415; 51702; 59025; 59409; 80053; 82570; 83615; 84156; 85025; 86592; 86850; 86900; 86901; A9270-GY; J2590; J3010; J3490; J7120

== ENCOUNTER 2022-12-14 12:55 | Inpatient (IN) | payer OTHER ==
[2022-12-14 13:44] LABS: HEMATOCRIT 31.7 % (34.1-44.9); HEMOGLOBIN 10.1 gm/dl (11.2-15.7); MEAN CORPUSCULAR HEMOGLOBIN 28.9 pg (25.6-32.2); MEAN CORPUSCULAR HGB CONC 31.9 g/dl (32.2-35.5); MEAN CORPUSCULAR VOLUME 90.6 fl (79.4-94.8); MEAN PLATELET VOLUME 10.1 fl (9.4-12.3); PLATELET COUNT,PLT 291 K/mm3 (182-369); WHITE BLOOD CELL COUNT,WBC 10.58 K/mm3 (3.98-10.04)
[2022-12-14] MEDS ORDERED: Simethicone 80 MG Tab.Chew PO PRN (13:58)
[2022-12-14] MEDS ORDERED: Docusate Sodium 100 MG Cap PO PRN (13:58)
[2022-12-14] MEDS ORDERED: Magnesium Sulfate/Water 6 GM in Premix Bag 1 BAG IV ONE (13:58)
[2022-12-14] MEDS ORDERED: Benzocaine/Menthol 20%-0.5% Spray 78 GM Cannister TOP PRN (13:58)
[2022-12-14] MEDS ORDERED: Witch Hazel Medicated Pads 40/Jar TOP PRN (13:58)
[2022-12-14] MEDS ORDERED: Hydrocortisone Acetate 25 MG Supp RECTAL PRN (13:58)
[2022-12-14] MEDS ORDERED: Calcium Gluconate 10% 1 GM/10 ML SDV IV PRN (13:58)
[2022-12-14 14:09] LABS: A/G RATIO 0.6 (1-2); ALBUMIN 2.1 g/dl (3.4-5.0); ANION GAP 16.3 (5-15); BILIRUBIN TOTAL 0.1 mg/dL (0.2-1.0); BUN/CREATININE RATIO 12.7 (14-18); CALCIUM 8.9 mg/dL (8.5-10.1); CREATININE 1.1 mg/dL (0.55-1.02); EST CRCL DRUG DOSING (CG) 64.23 mL/min; POTASSIUM,K 3.3 mEq/L (3.5-5.1); PROTEIN TOTAL,TP 5.7 g/dl (6.4-8.2)
[2022-12-14 14:11] LABS: BAND PERCENT MAN 0 % (0-10); BASOPHILS PERCENT MAN 1 (0.1-1.2); EOSINOPHILS PERCENT MAN 2 % (0.7-5.8); LYMPHOCYTES % ATYPICAL MANUAL 0 %; LYMPHOCYTES PERCENT MAN 24 % (20-40); MONOCYTES PERCENT MAN 7 % (2-10)
[2022-12-14 14:12] LABS: ANISOCYTOSIS 1+ SLIGHT; HYPOCHROMASIA 1+ SLIGHT; PLATELET COUNT ESTIMATE ADEQUATE
[2022-12-14] MEDS ORDERED: Magnesium Sulfate/Water 2 GM in Premix Bag 1 BAG IV ONE (14:15)
[2022-12-14] MEDS: Lactated Ringers 1,000 ML IV SCH (14:21)
[2022-12-14] MEDS ORDERED: Magnesium Sulfate/Water 4 GM in Premix Bag 1 BAG IV ONE (14:30)
[2022-12-14] MEDS ORDERED: oxyCODONE 5 MG Tab PO ONE (14:45)
[2022-12-14] MEDS: NIFEdipine 30 MG Tab.ER PO SCH (14:58)
[2022-12-14] MEDS: Magnesium Sulfate/Water 40 GM/1,000 ML BAG IV SCH (15:03)
[2022-12-14 16:12] LABS: PROTEIN,URINE RANDOM 14.9 mg/dL (0.0-11.8)
[2022-12-14 16:13] LABS: CREATININE,URINE RAND < 13.0 mg/dL (30.0-125.0)
[2022-12-14] MEDS: Acetaminophen 325 MG Tab PO PRN (20:29)
[2022-12-14] MEDS: Ibuprofen 600 MG Tab PO PRN (20:30)
[2022-12-14] MEDS ORDERED: Magnesium Hydroxide 400 MG/5 ML Susp 30 ML Cup PO PRN (21:00)
[2022-12-15] MEDS: Acetaminophen 325 MG Tab PO PRN ×3 (00:35→16:55)
[2022-12-15] MEDS ORDERED: oxyCODONE 5 MG Tab PO ONE ×2 (03:54→06:15)
[2022-12-15] MEDS: Lactated Ringers 1,000 ML IV SCH (04:06)
[2022-12-15] MEDS: Ibuprofen 600 MG Tab PO PRN ×2 (06:19→16:54)
[2022-12-15] MEDS ORDERED: Ondansetron 4 MG/2 ML SDV IVPUSH PRN (09:19)
[2022-12-15] MEDS ORDERED: Albuterol 6.7 GM Inhaler INH PRN (09:32)
[2022-12-15] MEDS: NIFEdipine 30 MG Tab.ER PO SCH (09:47)
[2022-12-15] MEDS: Magnesium Sulfate/Water 40 GM/1,000 ML BAG IV SCH (09:55)
[2022-12-15] MEDS: Prenatal Multivitamin with Calcium/Folic Acid/Iron Tab PO SCH (11:47)
[2022-12-16] MEDS: Ibuprofen 600 MG Tab PO PRN (04:11)
[2022-12-16] MEDS: Acetaminophen 325 MG Tab PO PRN (08:15)
[2022-12-16] MEDS: NIFEdipine 30 MG Tab.ER PO SCH (08:59)
[2022-12-16] MEDS: Prenatal Multivitamin with Calcium/Folic Acid/Iron Tab PO SCH (09:03)
== END 2022-12-16 12:45 | disposition home or self-care (01) | DRG 776 ==
LOC: JD.ED 12:55 → JD.OB 13:58
PROVIDERS: ADMIT Obstetrics & Gynecology; ATTEND Obstetrics & Gynecology
DX: O14.15 Severe pre-eclampsia, complicating the puerperium (principal); O99.893 Other specified diseases and conditions complicating puerperium; R51.9 Headache, unspecified; O99.63 Diseases of the digestive system complicating the puerperium; K21.9 Gastro-esophageal reflux disease without esophagitis; Z88.2 Allergy status to sulfonamides
CPT/HCPCS: 36415; 71045; 71045-26; 80053; 82570; 83615; 84156; 85007; 85027; 94640; A9270-GY; J2405; J3475; J7120

== ENCOUNTER 2024-07-17 11:14 | Emergency (ER) | payer OTHER ==
[2024-07-17 14:00] LABS: BASOPHILS PERCENT AUTO 0.4 % (0.0-1.0); EOSINOPHILS ABSOLUTE AUTO 0.3 K/mm3 (0.0-0.4); EOSINOPHILS PERCENT AUTO 3.1 % (0.0-6.0); HEMATOCRIT 43.1 % (37.0-47.0); HEMOGLOBIN 14.2 gm/dl (12.0-16.0); IMMATURE GRAN ABSOLUTE AUTO 0.03 K/mm3 (0.00-0.05); IMMATURE GRAN PERCENT AUTO 0.3 % (0.0-0.4); LYMPHOCYTES ABSOLUTE AUTO 2.5 K/mm3 (1.0-4.8); LYMPHOCYTES PERCENT AUTO 26.3 % (24.0-44.0); MEAN CORPUSCULAR HEMOGLOBIN 28.7 pg (28.0-32.0); MEAN CORPUSCULAR HGB CONC 32.9 g/dl (32.0-36.0); MEAN CORPUSCULAR VOLUME 87.2 fl (83.0-99.0); MEAN PLATELET VOLUME 8.8 fl (9.4-12.3); MONOCYTES ABSOLUTE AUTO 0.5 K/mm3 (0.0-0.8); MONOCYTES PERCENT AUTO 5.8 % (0.0-8.0); NEUTROPHILS PERCENT AUTO 64.1 % (41.0-71.0); PLATELET COUNT,PLT 457 K/mm3 (150-400); RED BLOOD CELL COUNT 4.94 M/mm3 (4.10-5.30); WHITE BLOOD CELL COUNT,WBC 9.36 K/mm3 (3.9-11.3)
[2024-07-17] MEDS: Albuterol/Ipratropium 3.0-0.5 MG/3 ML Neb Soln NEB ONE (14:15)
[2024-07-17 14:17] LABS: A/G RATIO 0.8 (1-2); ALANINE AMINOTRANSFERASE,ALT 21 U/L (14-59); ALBUMIN 3.3 g/dl (3.4-5.0); ALKALINE PHOSPHATASE 74 U/L (46-116); ANION GAP 14.1 (5-15); ASPARTATE AMNIOTRANSFERASE,AST 16 U/L (15-37); BILIRUBIN TOTAL 0.3 mg/dL (0.2-1.0); BLOOD UREA NITROGEN,BUN 9 mg/dL (7-18); CARBON DIOXIDE,CO2 26 mEq/L (21-32); CHLORIDE,CL 104 mEq/L (98-107); CREATININE 0.9 mg/dL (0.55-1.02); EST CRCL DRUG DOSING (CG) 77.76 mL/min; ESTIMATED GFR 85 mL/min (>60); GLUCOSE RANDOM 83 mg/dL (70-99); POTASSIUM,K 4.1 mEq/L (3.5-5.1); PROTEIN TOTAL,TP 7.3 g/dl (6.4-8.2); SODIUM,NA 140 mEq/L (136-145)
[2024-07-17 14:19] LABS: TROPONIN I HIGH SENSITIVITY < 4 pg/mL (<=51)
[2024-07-17] MEDS: droPERidol 2.5 MG/ML SDV IVPUSH ONE (14:47)
[2024-07-17] MEDS: predniSONE 20 MG Tab PO ONE (14:48)
[2024-07-17 15:28] LABS: APPEARANCE,URINE CLEAR (Clear); BILIRUBIN,URINE NEGATIVE (Negative); COLOR,URINE YELLOW (Yellow); GLUCOSE,URINE NEGATIVE (Negative); KETONES,URINE NEGATIVE (Negative); LEUKOCYTE ESTERASE,URINE TRACE (Negative); NITRITE,URINE NEGATIVE (Negative); OCCULT BLOOD,URINE NEGATIVE (Negative); PROTEIN,URINE NEGATIVE (Negative); UROBILINOGEN,URINE 0.2 (0.2-1.0)
[2024-07-17 21:50] LABS: BACTERIA,URINE FEW /hpf (FEW); MUCUS,URINE FEW /hpf (FEW); RBC,URINE 0-5 /hpf (0-5); SQUAMOUS EPITHELIAL CELLS,UR 0-5 /hpf (0-5); WBC,URINE 0-5 /hpf (0-5)
== END 2024-07-17 16:36 | disposition left against medical advice (07) ==
LOC: JD.ED 11:14
DX: R55 Syncope and collapse (principal); J45.901 Unspecified asthma with (acute) exacerbation; Z88.2 Allergy status to sulfonamides; Z79.899 Other long term (current) drug therapy; E66.9 Obesity, unspecified; Z86.16 Personal history of COVID-19; Z90.49 Acquired absence of other specified parts of digestive tract; Z68.28 Body mass index [BMI] 28.0-28.9, adult
CPT/HCPCS: 36415; 71046; 80053; 81001; 84484; 84703; 85025; 87086; 87428; 93005; 94640; 96374; 99284; J7512; J7620-GY